=== PATIENT | male | born 1935 | race Caucasian/White ===

== ENCOUNTER 2016-07-10 15:22 | Inpatient (IN) | payer MEDICARE ==
[~2016-07-10] VITALS: Ht 171.4 cm; Wt 67.2 kg
[2016-07-10] VITALS (10 sets, daily range): BP systolic 102–134; BP diastolic 60–79; PULSE 89–100; RESP 18–44; O2SAT 87–97
[~2016-07-10 15:22] MED LIST: ALBU18HF INH; ALBU6.7H INH; ASPI-973 PO; BUDE1AMP2 IH; CALCIT PO; CHOL200047 PO; CHRO400T8 PO; DIF100A PO; INSU100I25 SQ; INSU3INS3 SUBQ; IPRA30SP8 NS; IPRA3AMP IH; LIPA1CAP3 PO; LIPA1CAP5 PO; MAGN250T29 PO; POTA99TA21 PO; PRAV40TA PO; RELION THIN SQ; SYMINH INHALATION; [UNRECOGNIZED DRUG - CODE] MC; [UNRECOGNIZED DRUG - OTHER]; [UNRECOGNIZED DRUG - OTHER] PO; [UNRECOGNIZED DRUG - SUPPLY]
--- NOTE | 2016-07-10 16:12 | DRSVH ---
PROCEDURE: X-RAY CHEST, TWO VIEWS ([id number]) INDICATIONS: COPD, RATTLING IN LUNGS, SOB TECHNIQUE: 2 views of the chest were acquired. COMPARISON: [facility], CT, CT CHEST ABD PELVIS W CON, 06/22/2016, 14:42. Rachael morton CR, CHEST 2VW, 03/26/2014, 12:07. FINDINGS: Surgical changes and devices: postoperative changes of the right shoulder are noted. Lungs and pleura: Bibasilar airspace disease is new since the prior CT. There may be trace effusions versus scarring. Subtle developing right infrahilar airspace disease appears to be present. No pne umothorax is evident. Mediastinum: Mediastinal contours are normal. Heart size is normal. There is aortic atherosclerosi s. Bones and chest wall: No suspicious bony abnormalities. Soft tissues appear unremarkable. IMPRESSION: 1. Developing bibasilar airspace disease is suspicious for pneumonia. There may be trace left effus ion. Dictated by: Hung Griffin M.D. on 07/10/2016 at 15:09 Approved by: Hung Griffin M.D. on 07/10/2016 at 15:11
--- NOTE | 2016-07-10 16:36 | ED.REPORT ---
HPI-Dyspnea / Wheezing Date of Service July 10, 2016 ED Provider: The patient is a 80 year old male with history of COPD, diabetes mellitus, and pancreatic cancer in remission s/p resection and chemotherapy, who was sent to the emergency department by his regular doctor for shortness of breath. The patient states his breathing has been this bad over the last 3 months. He uses Nebulizers and inhalers at home. He is not on home oxygen. He denies chest pain , fever, chills, productive cough, nausea, vomiting or diarrhea. He quit smoking tobacco about 10 years ago. Nursing Notes Stated Complaint: SHORTNESS OF BREATH Chief Complaint: Respiratory Distress Nursing Notes Reviewed: Yes Allergies: Coded Allergies: acetaminophen (Verified Allergy, Intermediate, RASH, 07/10/16) baclofen (Verified Allergy, Intermediate, 07/10/16) oxycodone (Verified Allergy, Intermediate, RASH, 07/10/16) Scheduled Aspirin (Aspirin) 81 Mg Tablet 81 MG PO DAILY Budesonide (Budesonide) 1 Mg/2 Ml Ampul.neb 1 MG IH BID Budesonide/Formoterol 160-4.5 mcg Inh (Symbicort 160-4.5 mcg Inh) 120 Puff Inhaler 1 PUFF INHALATION BID Calcium Citrate (Calcium Citrate) 250 Mg Tablet 250 MG PO DAILY Cholecalciferol (Vitamin D3) (Vitamin D3) 2,000 Unit Capsule 2,000 UNIT PO DAILY Chromium Picolinate (Chromium Picolinate) 400 Mcg Tablet 400 MCG PO DAILY Fluconazole (Diflucan) 100 Mg Tab 100 MG PO DIRECTED Insulin Detemir (Levemir Flextouch) 100 Unit/1 Ml Insuln.pen 100 UNIT SQ DIRECTED Insuln Asp Prt/Insulin Aspart (NovoLOG 70/30 U100 Insulin Flexpen) 100 Unit/Ml Unit 8-12 UNIT SUBQ sliding scale Ipratropium [place] (Ipratropium [place] 0.03% Nasal) 30 Ml [place] 2 SPRAY NS TID Lipase/Protease/Amylase (Creon DR) 12,000 Unit Capsule 2 CAPSULE PO TID Lipase/Protease/Amylase (Creon DR) 24,000 Unit Capsule 2 CAPSULE PO TID Magnesium Oxide (Magnesium) 250 Mg Tablet 250 MG PO DAILY Mv, Min #36/Iron,Carbonyl/FA (Geritol Complete Tablet) 1 Each Tablet 1 EACH PO DAILY Potassium Gluconate (Potassium) 99 Mg Tablet 99 MG PO DAILY Pravastatin (Pravastatin) 40 Mg Tablet 40 MG PO DAILY Scheduled PRN Albuterol Sulfate (Proventil HFA Inhaler) 6.7 Gm Hfa.aer.ad 1 PUFF INH Q4 PRN PRN For Shortness of Breath Albuterol Sulfate (Ventolin HFA Inhaler) 200 Puff/18 Gm Inhaler 1 PUFF INH Q4 PRN PRN For Wheezing Ipratropium/Albuterol Sulfate (Iprat-Albut 0.5-3(2.5) mg/3 mL Inhalant Soln) 3 Ml Ampul.neb 3 ML IH QID PRN PRN For Wheezing General Time Seen by MD: 16:36 Chief Complaint Shortness of breath Hx Obtained From: Patient Arrived By: Walk-in Sudden in Onset?: No Onset Occurred: 1 week ago Symptom Duration: Since onset Location: : None Severity: Current: No pain currently Severity: Maximum: No pain Recent Healthcare: No recent hospitalization, Recent doctor visit Similar Sx Previous: Yes Past Medical History Past Medical History Notes: Oncologist: Dr. Burgos Past Medical History COPD Diabetes mellitus Pancreatic cancer Past Surgical History Tumor resections Family History Noncontributory Smoking History Unknown if Ever Smoker Social History Lives in [facility] [place] Independent Review of Systems Constitutional: Denies: Chills, Fever Respiratory: Reports: Shortness of breath, Denies: Prod cough, bloody, Prod cough, brown, Prod cough, clear, Prod cough , green, Prod cough, white, Prod cough, yellow Cardiovascular: Denies: Chest pain Complete sys rev & neg: except as marked. GI: Denies: Diarrhea, Nausea, Vomiting Physical Exam Initial Vital Signs Vital Signs (First) Date Time Temp Pulse Resp B/P Pulse Ox O2 Delivery O2 Flow Rate FiO2 07/10/16 15:42 36.3 89 22 102/60 95 Room Air 07/10/16 17:46 2 Initial VS: Reviewed Head / Eyes: Atraumatic, Normocephalic, PERRL ENT: Mucous membranes moist, Conjunctiva normal, No scleral icterus Abdomen / GI: Soft, Non-tender, No guarding, No rebound, No distention Lymphatic: No lymphadenopathy Extremities: Vascular intact, Neuro intact, No swelling, No tenderness Skin: Warm, Dry, No cyanosis Neurologic: Alert, Oriented, Nonfocal Psychiatric: Mood/affect normal, Behavior normal, Normal thought content General/Constitutional: Awake, Alert, Cooperative Neck: Atraumatic, Supple, No meningismus, Full range of motion, No swelling, Non-tender, No masses Respiratory / Chest: Breath sounds = bilat, No respiratory distress, No rales, No rhonchi, No wheezing, No retractions Diminished Breath Sounds: Positive: Decreased bilateral Cardiovascular: Heart rate NL, Regular rhythm, Heart sounds NL, No murmurs, No rubs, Peripheral circulation NL Interpretation & Diagnostics Lab Results Interpretation Result Diagram: 07/10/16 1720 07/10/16 1720 Test 07/10/16 17:20 White Blood Count 6.0th/mm3 (3.8-10.1) Red Blood Count 4.47mil/mm3 (4.40-5.80) Hemoglobin 13.8g/dL (13.8-17.2) Hematocrit 41.1% (41.0-50.0) Mean Corpuscular Volume 91.9fL (81-100) Mean Corpuscular Hemoglobin 30.9pg (27.0-35.0) Mean Corpuscular Hemoglobin Concent 33.6% (32.0-37.0) Red Cell Distribution Width 14.2% (12.3-15.4) Platelet Count 156bil/L (150-400) Neutrophils (%) (Auto) 71.9% (40-74) Lymphocytes (%) (Auto) 15.8% (14-46) Monocytes (%) (Auto) 11.3% (4-12) Eosinophils (%) (Auto) 0.5% (0-5) Basophils (%) (Auto) 0.3% (0-3) Sodium Level 141mEq/L (134-144) Potassium Level 4.3mEq/L (3.5-5.2) Chloride Level 104mEq/L (97-108) Carbon Dioxide Level 23mmol/L (18-29) Blood Urea Nitrogen 15mg/dL (8-27) Creatinine 0.75mg/dL (0.76-1.27) Estimat Glomerular Filtration Rate 107mL/min (>59) Glucose Level 239mg/dL (60-99) Calcium Level 8.7mg/dL (8.5-10.1) Total Bilirubin 0.7mg/dL (0.0-1.2) Aspartate Amino Transf (AST/SGOT) 41U/L (0-50) Alanine Aminotransferase (ALT/SGPT) 44U/L (0-44) Alkaline Phosphatase 74U/L (25-160) Troponin T < 0.010ug/L (0.0-0.011) Pro-B-Type Natriuretic Peptide 4472pg/mL (0-486) Total Protein 7.0g/dL (6.4-8.4) Albumin 3.6g/dL (3.4-5.0) Hold Lang Top Tube Received (Received) ECG Interpretation ECG Interpretation: Sinus rhythm with a rate of 85 Probable left atrial enlargment LBBB Time: 17:27 Interpreted by: ED physician X-Ray Chest Interpretation Chest Xray Interpretation: IMPRESSION: 1. Developing bibasilar airspace disease is suspicious for pneumonia. There may be trace left effusion. Dictated by: Hung Griffin M.D. on 07/10/2016 at 15:09 Interpretation / Wet Read by: Interpret - Radiologist Re-Eval/Medical Decision Source of Hx: Old records Re-Evaluation/Progress #1: Time of Eval: 17:30 Re-Evaluation/Progress Note: The patient was 87 % during his road test. Re-Evaluation/Progress #2: Time of Eval: 18:34 Re-Evaluation/Progress Note: Rechecked the patient. Discussed plan for admission. All questions were addressed. Consultation : Referral / Consult Name: Matias Santa MD Consulted With: Hospitalist Call Returned at: 19:30 Breaker Hand: Will see patient, Agrees with eval, Agrees with plan, Accepts admit Counseled Regarding: Diagnosis, Lab results, Need for admission Discharge & Departure Impression: Primary Impression: COPD exacerbation Disposition: ADMITTED TO HOSPITAL Discharge Condition All VS Reviewed: Yes Condition: Stable Referrals: Eduard Marshall DO (PCP) Demetrio Attestation Portions of this note were transcribed by Korin Loza. I, Dr. Diego personally performed the history, physical exam and medical decision-making; I reviewed and confirmed the accuracy of the information in the transcribed note. Signed by: Demetrio Restrepo, 07/10/2016 at 1945. copies to: Eduard Marshall Kirk H MD July 10, 2016 16:36 Korin Loza July 10, 2016 16:39
[2016-07-10 17:32] LABS: BASOPHILS % (AUTO) 0.3 % (0-3); EOSINOPHILS % (AUTO) 0.5 % (0-5); MONOCYTES % (AUTO) 11.3 % (4-12); Mean Corpuscular Hemoglobin 30.9 pg (27.0-35.0); Mean Corpuscular Volume 91.9 fL (81-100); NEUTROPHILS % (AUTO) 71.9 % (40-74); Platelet Count 156 bil/L (150-400)
[2016-07-10 18:08] LABS: TROPONIN T < 0.010 ug/L (0.0-0.011)
[2016-07-10] MEDS ORDERED: Albuterol-Ipratropium 3 mL Inhalation Solution NEB ONE (18:35)
[2016-07-10] MEDS ORDERED: Albuterol 2.5 mg/3 mL Inhalation Solution NEB ONE (18:35)
[2016-07-10] MEDS ORDERED: MethylprednisoLONE Sodium Succinate 62.5 mg/mL 2 mL Inj IVPUSH ONE (18:35)
[2016-07-10] MEDS ORDERED: Ondansetron 2 mg/mL 2 mL Inj IVPUSH PRN ×2 (19:35→19:50)
[2016-07-10] MEDS ORDERED: Alum-Mag Hydrox-Simeth 30 mL Suspension PO PRN ×2 (19:35→19:50)
[2016-07-10] MEDS ORDERED: Polyethylene Glycol (PEG) 17 Gm Powder PO PRN (19:50)
[2016-07-10] MEDS ORDERED: Glucose 40% Oral Gel 15 Gm Tube PO PRN (19:55)
--- NOTE | 2016-07-10 20:01 | PCM.HPMED ---
Subjective Date of Service July 10, 2016 Primary Provider: Admitting Physician: Primary Care Physician: Eduard Marshall DO Attending Physician: Admit Status: From the Emergency Department, Full Admit, Remote Telemetry Chief Complaint: Shortness of breathe History of Present Illness: Eduardo Martinez is a 80 year old male with COPD, diabetes mellitus, and pancreatic cancer in remission s/p resection and chemotherapy, who was sent to [facility] emergency department by his regular doctor for shortness of breath. The patient states his breathing has been this bad over the last 3 months but worsened in the last 2-3 days. Associated symptoms includes productive whitish sputum. Dyspnea exacerbated with exertion. Denies any sick contacts. He uses Nebulizers and inhalers at home with no significant improvement. Yesterday he was mowing his lawn and it really made his breathing worst. He does have allergies to pollen. He denies chest pain, fever, chills, nausea, vomiting or diarrhea. Patient had hypoglycemic episode a few days back likely due to PO intake due to his breathing issues mentioned above. He was instructed to decreased his Novolog dose by 2 units. He is not on home oxygen. He quit smoking tobacco about 10 years ago. He denies any heart failure or other heart problems. Case discussed with Dr Diego, received neb treatments and Solu-Medrol IV. Oxygen also given but despite rounds of treatments still remained symptomatic and will be admitted Review of Systems: Pertinent positives as noted in HPI. All other systems were reviewed and are negative Allergies Coded Allergies: acetaminophen (Verified Allergy, Intermediate, RASH, 07/10/16) baclofen (Verified Allergy, Intermediate, 07/10/16) oxycodone (Verified Allergy, Intermediate, RASH, 07/10/16) Home Medications From [facility], Not yet confirmed Eduardo Martinez [phone] 1935 06/08/2016 04:10 PM 1/6 Aspirin 1 tab(s) PO once a day BUDESONIDE 0.5 MG/2 ML SUSP INHALE THE CONTENTS OF 1 VIAL VIA NEBULIZER TWICE A DAY calcium citrate chromium picolinate 400 mcg tablet Creon 12,000-38,000-60,000 unit capsule,delayed release take 2 capsule by oral route 3 times every day with meals and 1 capsule with each snack Creon 24,000-76,000-120,000 unit capsule,delayed release take 2 capsule by oral route 3 times every day with meals and 1 capsule with each snack Diflucan 100 mg tablet take 2 tablet by oral route for the first day. Then take one tablet by oral route for 13 days. IPRATROPIUM 0.03% SPRAY instill 2 sprays into each nostril twice a day to three times a day ipratropium-albuterol 0.5 mg-3 mg(2.5 mg base)/3 mL nebulization soln inhale 3 milliliter by nebulization route 4 times every day Levemir FlexTouch 100 unit/mL (3 mL) subcutaneous insulin pen inject 10 units by subcutaneous route in the morning and at night. magnesium 250 mg tablet Novolog Flexpen 100 unit/mL subcutaneous Inject 8-12 units with meals depending on sm/med/lg meal, along with sliding scale potassium 99 mg tablet pravastatin 40 mg tablet 1/2 po QPM Proventil HFA 90 mcg/actuation aerosol inhaler 2 puffs inhaled qid prn congestion Symbicort 160 mcg-4.5 mcg/actuation HFA aerosol inhaler inhale 2 puff by inhalation route 2 times every day in the morning and evening tamsulosin 0.4 mg capsule TAKE 1 CAPSULE BY MOUTH TWICE A DAY 30 MINS FOLLOWING THE SAME MEAL EACH DAY Ventolin HFA 90 mcg/actuation aerosol inhaler inhale 2 puff by inhalation route every 4 - 6 hours as needed Vitamin D3 2,000 unit tablet PMH T3 N0 pancreatic head adenocarcinoma diagnosed in 2006 Insulin requiring Diabetes SHOULDER TENDINITIS Nodular Prostate With Urinary Obstruction COPD OSTEOARTHRITIS LUMBAGO AAA Hyperlipidemia Chronic Hepatitis C . Surgical History Exploratory laparotomy with lysis of adhesions, pylorus-preserving Whipple procedure and portal node resection. At [facility] in 2006 Family History Father was a Alcoholic and developed cirrhosis Mother 84, had Cold agglutin AB syndrome Social History Occupation: works security Hx Alcohol Use: No Hx Substance Use: No Hx Tobacco Use: Yes (quit more than 10 years ago) Smoking Status: Former Smoker Living Arrangement: with Family Exam Vital Signs Vital Sign - Last Date Time Temp Pulse Resp B/P Pulse Ox O2 Delivery O2 Flow Rate FiO2 07/10/16 19:47 93 24 125/75 96 Nasal Cannula 2 07/10/16 15:42 36.3 Exam General: Alert, Oriented X3, Cooperative, No acute Distress talking in full sentences Eyes: PERRLA, Scleral Anicteric Mouth: Mouth Normal, Mucous Membranes Moist/[place] Neck: Supple, no Thyromegaly, trachea central. Chest & Lungs: decreased breathe sounds throughout with mild expiratory wheezing Cardiovascular: Normal S1, Normal S2, No Murmurs/Rubs/Gallops, Regular Rate/ Rhythm, (No JVD, no peripheral edema) Pulses: Radial (present and equal), Dorsalis Pedi (present and equal) Abdomen: Soft, Non-tender, Non-distended, Normoactive bowel tones. Musculoskeletal: Unremarkable. Normal range of motion, no swollen or erythematous joints Extremities: No edema, no cyanosis, no clubbing. Skin: No rashes. Warm and dry, no erythematous areas Neurological: Grossly neurologically intact, Normal Speech, Sensation Intact Lymphatic: Lymph nodes Cervical and Axillary not palpable. Lab and Diagnostics Labs Laboratory Tests Test 07/10/16 17:20 White Blood Count 6.0th/mm3 (3.8-10.1) Red Blood Count 4.47mil/mm3 (4.40-5.80) Hemoglobin 13.8g/dL (13.8-17.2) Hematocrit 41.1% (41.0-50.0) Mean Corpuscular Volume 91.9fL (81-100) Mean Corpuscular Hemoglobin 30.9pg (27.0-35.0) Mean Corpuscular Hemoglobin Concent 33.6% (32.0-37.0) Red Cell Distribution Width 14.2% (12.3-15.4) Platelet Count 156bil/L (150-400) Neutrophils (%) (Auto) 71.9% (40-74) Lymphocytes (%) (Auto) 15.8% (14-46) Monocytes (%) (Auto) 11.3% (4-12) Eosinophils (%) (Auto) 0.5% (0-5) Basophils (%) (Auto) 0.3% (0-3) Sodium Level 141mEq/L (134-144) Potassium Level 4.3mEq/L (3.5-5.2) Chloride Level 104mEq/L (97-108) Carbon Dioxide Level 23mmol/L (18-29) Blood Urea Nitrogen 15mg/dL (8-27) Creatinine 0.75mg/dL (0.76-1.27) Estimat Glomerular Filtration Rate 107mL/min (>59) Glucose Level 239mg/dL (60-99) Calcium Level 8.7mg/dL (8.5-10.1) Total Bilirubin 0.7mg/dL (0.0-1.2) Aspartate Amino Transf (AST/SGOT) 41U/L (0-50) Alanine Aminotransferase (ALT/SGPT) 44U/L (0-44) Alkaline Phosphatase 74U/L (25-160) Troponin T < 0.010ug/L (0.0-0.011) Pro-B-Type Natriuretic Peptide 4472pg/mL (0-486) Total Protein 7.0g/dL (6.4-8.4) Albumin 3.6g/dL (3.4-5.0) Hold Lang Top Tube Received (Received) Result Diagram: 07/10/16 1720 07/10/16 1720 X-Rays, CTs and MRIs X-RAY CHEST, TWO VIEWS 07/10 IMPRESSION: 1. Developing bibasilar airspace disease is suspicious for pneumonia. There may be trace left effusion. Dictated by: Hung Griffin M.D. on 07/10/2016 at 15:09 Approved by: Hung Griffin M.D. on 07/10/2016 at 15:11 Assessment & Plan Eduardo Martinez is a 80 year old male with COPD, diabetes mellitus, and pancreatic cancer in remission s/p resection and chemotherapy, who was sent to [facility] emergency department by his regular doctor for shortness of breath. 1. Acute Hypoxic Respiratory Failure secondary to COPD exacerbation. Present on admission Likely triggered by a viral respiratory infection and allergic rhinitis with pollens. Former smoke 10 years ago - continue supplemental oxygen - DuoNeb treatments scheduled - Steroids: Solu-Medrol IV received tapered to Prednisone 40 mg daily - checking procalcitonin, consider antibiotics if elevated - Respiratory therapists to test if patient qualify for home oxygen prior to discharge 2. Diabetes Type 1. Some hypoglycemic episodes recently due to decreased appetite. Expecting some pump from the steroids - high correction Lispro algorithm - converting Levemir to Lantus 10 units bid sq - checking A1c 3. Pancreatis cancer in remission with Chronic pancreatitis - continue Creon with meals - continue outpatient surveillance with the Oncology clinic 4. Aortic Aneurysm There is fusiform dilatation of the infrarenal abdominal aorta which measures 3.5 x 3.9 cm in diameter and is unchanged in the study dated 12/11/13. - needs yearly imaging to monitor progression - no indications for Aortic surgery at this time 5. Dyslipidemia - continue Pravastatin 20 mg daily - Acetaminophen as needed for mild pain/fever/headache - Bowel regimen as needed - Antiemetic as needed Patient admitted under inpatient status with expected length of stay > 2 midnights for severity of present symptoms, complexities of treatment plan and risk for adverse event . Resuscitation Status: CPR: Attempt Resuscitation Matias Santa MD July 10, 2016 20:01 DAY calcium citrate chromium picolinate 400 mcg tablet Creon 12,000-38,000-60,000 unit capsule,delayed release take 2 capsule by oral route 3 times every day with meals and 1 capsule with each snack Creon 24,000-76,000-120,000 unit capsule,delayed release take 2 capsule by oral route 3 times every day with meals and 1 capsule with each snack Diflucan 100 mg tablet take 2 tablet by oral route for the first day. Then take one tablet by oral route for 13 days. IPRATROPIUM 0.03% SPRAY instill 2 sprays into each nostril twice a day to three times a day ipratropium-albuterol 0.5 mg-3 mg(2.5 mg base)/3 mL nebulization soln inhale 3 milliliter by nebulization route 4 times every day Levemir FlexTouch 100 unit/mL (3 mL) subcutaneous insulin pen inject 10 units by subcutaneous route in the morning and at night. magnesium 250 mg tablet Novolog Flexpen 100 unit/mL subcutaneous Inject 8-12 units with meals depending on sm/med/lg meal, along with sliding scale Proventil HFA 90 mcg/actuation aerosol inhaler 2 puffs inhaled qid prn congestion Symbicort 160 mcg-4.5 mcg/actuation HFA aerosol inhaler inhale 2 puff by inhalation route 2 times every day in the morning and evening tamsulosin 0.4 mg capsule TAKE 1 CAPSULE BY MOUTH TWICE A DAY 30 MINS FOLLOWING THE SAME MEAL EACH DAY Ventolin HFA 90 mcg/actuation aerosol inhaler inhale 2 puff by inhalation route every 4 - 6 hours as needed Vitamin D3 2,000 unit tablet Resuscitation Status: CPR: Attempt Resuscitation Matias Santa MD July 10, 2016 20:01
[2016-07-10] MEDS ORDERED: INSU100C8 SUBQ (20:09)
[2016-07-10] MEDS ORDERED: TAMS0.4C29 PO (20:16)
[2016-07-10] MEDS ORDERED: FISH1CAP15 PO (20:17)
[2016-07-10] MEDS: Albuterol-Ipratropium 3 mL Inhalation Solution NEB SCH ×2 (20:59→23:52)
[2016-07-10] MEDS ORDERED: Insulin LISPRO 300 Unit/3 mL Inj SUBQ SCH (22:00)
--- NOTE | 2016-07-10 23:27 | NUR ---
admit note: pt. admitted for sob, worse past two weeks, tele sinus rhythm IVCD 94, pt. on 4lO2 has sob w/ exertion.
[2016-07-10] MEDS: Insulin GLARgine 100 Unit/mL Syringe SUBQ SCH (23:32)
[2016-07-10] MEDS: Heparin 5,000 Unit/mL Inj SUBQ SCH (23:33)
[2016-07-11] VITALS (12 sets, daily range): BP systolic 119–145; BP diastolic 79–94; PULSE 92–104; RESP 20–28; O2SAT 93–98
[2016-07-11] MEDS: Albuterol-Ipratropium 3 mL Inhalation Solution NEB SCH ×5 (05:00→20:58)
[2016-07-11] MEDS ORDERED: MV MIN PO SCH (07:35)
[2016-07-11] MEDS ORDERED: [UNRECOGNIZED DRUG - OTHER] PO SCH (07:35)
[2016-07-11] MEDS ORDERED: IRON CARBONYL PO SCH (07:35)
[2016-07-11] MEDS ORDERED: Glucose 40% Oral Gel 15 Gm Tube PO PRN (07:40)
[2016-07-11] MEDS: POTASSIUM GLUCONATE 198 MG PO SCH (08:00)
[2016-07-11] MEDS ORDERED: predniSONE 20 mg Tablet PO SCH (08:30)
[2016-07-11] MEDS: Heparin 5,000 Unit/mL Inj SUBQ SCH ×2 (08:41→17:31)
[2016-07-11] MEDS: Insulin LISPRO 300 Unit/3 mL Inj SUBQ SCH ×4 (08:42→21:42)
[2016-07-11] MEDS: Pancrelipase 5,000 Unit Capsule PO SCH ×3 (09:21→21:04)
[2016-07-11] MEDS: Fluticasone-Salmeterol 500-50 Inhaler INHALATION SCH ×2 (09:24→21:04)
[2016-07-11] MEDS: Insulin GLARgine 100 Unit/mL Syringe SUBQ SCH ×2 (09:24→21:41)
--- NOTE | 2016-07-11 11:01 | NUR ---
Med Rec: Med rec reviewed from provider list, pt SOB and states "you have the list" and did not want to discuss home medication list with RN.
--- NOTE | 2016-07-11 11:45 | PCM.PNMED ---
Subjective Date of Service July 11, 2016 Subjective Patient states that dyspnea has been getting worse the last 2-3 months. no fevers chills, productive clear sputum. He used smoker 56 yeras until he had pancreatic cancer. Nebulized treatments are not helping Exam Vital Signs Vital Sign - Last Date Time Temp Pulse Resp B/P Pulse Ox O2 Delivery O2 Flow Rate FiO2 07/11/16 05:08 36.3 96 20 128/85 95 Nasal Cannula 2.00 Intake and Output 07/10/16 07/10/16 07/11/16 Cumulative From/Thru 15:00 23:00 07:00 07/10/16 15:42 - 07/11/16 06:57 Intake Total 120 ml 600 ml 720 ml Output Total 750 ml 750 ml Balance 120 ml -150 ml -30 ml Intake Oral 120 ml 600 ml 720 ml Output Urine Total 750 ml 750 ml Exam Gen.: Appears to be in moderate distress HEENT: Normocephalic, atraumatic Lungs: Positive for rales and crackles but no wheezing , increased work of breathing Heart: Distant heart sounds are heard by breathing sounds Abd: NT/ND, soft neck: positive left side jvd, no hepatojugular reflux Extremities: 1+ pedal edema Abdomen: Nondistended Skin: Warm and dry Psych: Negative for anxiety: Neuro: No focal deficits IVs and Medications IV Fluids None Medications Reviewed: Medications were reviewed in detail Lab and Diagnostics Result Diagram: 07/10/16 1720 07/10/16 1720 X-Rays, CTs and MRIs X-RAY CHEST, TWO VIEWS 07/10 IMPRESSION: 1. Developing bibasilar airspace disease is suspicious for pneumonia. There may be trace left effusion. Dictated by: Hung Griffin M.D. on 07/10/2016 at 15:09 Approved by: Hung Griffin M.D. on 07/10/2016 at 15:11 Assessment & Plan Eduardo Martinez is a 80 year old male with COPD, diabetes mellitus, and pancreatic cancer in remission s/p resection and chemotherapy, who was sent to [facility] emergency department by his regular doctor for shortness of breath. 1. Acute Hypoxic Respiratory Failure secondary to COPD exacerbation. Plan review the place to be CHF exacerbation Present on admission Likely triggered by a viral respiratory infection and allergic rhinitis with pollens. Former smoke 10 years ago - continue supplemental oxygen - DuoNeb treatments scheduled 2. Acute on chronic congestive heart failure of unknown type: -- Lasix 40 mg 3 times a day IV -- Morphine as needed for dyspnea -- Nitroglycerin when necessary -- Oxygen when necessary -- Echocardiogram already performed: We will follow the result -- Daily weights, accurate I and O's 3. Diabetes Type 2. Some hypoglycemic episodes recently due to decreased appetite. Expecting some pump from the steroids - high correction Lispro algorithm - converting Levemir to Lantus 10 units bid sq - checking A1c 4. Pancreatis cancer in remission with Chronic pancreatitis - continue Creon with meals - continue outpatient surveillance with the Oncology clinic 5. Aortic Aneurysm There is fusiform dilatation of the infrarenal abdominal aorta which measures 3.5 x 3.9 cm in diameter and is unchanged in the study dated 12/11/13. - needs yearly imaging to monitor progression - no indications for Aortic surgery at this time 5. Dyslipidemia - continue Pravastatin 20 mg daily - Acetaminophen as needed for mild pain/fever/headache - Bowel regimen as needed - Antiemetic as needed Patient admitted under inpatient status with expected length of stay > 2 midnights for severity of present symptoms, complexities of treatment plan and risk for adverse event . Pain Evaluation: Adequate Pain Control Resuscitation Status: CPR: Attempt Resuscitation Time spent 30 minutes Jaye Mcleod DO July 11, 2016 07:30
--- NOTE | 2016-07-11 11:46 | NUR ---
Social Work: Initial Assessment Data: Pt is a 80 y/o male admitted for COPD exacerbation. Pt's PCP is Dr Marshall. Pt's insurance is Medicare with [employer] supp. EMR reviewed. Readmit score is 3. Pt discussed in rounds. MD states pt likely has CHF. GLAZING MACHINE OPERATOR met with pt at bedside, role explained. Pt states that he lives near [place] with his spouse in a single story home where he uses no DME. Pt drives, has no hx of HH or SNF, no LTC or VA benefits. GLAZING MACHINE OPERATOR explained and offered HH to pt, pt accepted. HH choice list given. Pt states no preference. Per rotating calendar, GLAZING MACHINE OPERATOR called [facility], spoke with [facility]. Faxed over Facesheet and H&P to them. F2F in GLAZING MACHINE OPERATOR folder. Daily with [facility] states she believes they go to [place] but will look into it to confirm. Assessment: Pt who is independent at baseline. Plan: Pt will d/c home via POV when medically stable with Landry OHARA RN. GLAZING MACHINE OPERATOR will continue to follow. TON Ramírez Addendum: 07/11/16 at 1208 by AGUILA MARS Amended: Links added.
[2016-07-11] MEDS: Furosemide 10 mg/mL 4 mL Inj IVPUSH SCH ×2 (12:03→21:04)
--- NOTE | 2016-07-11 12:42 | DRSVH ---
[facility] [address] [place] [address] Echocardiogram Report Name: MELISSA EPSTEIN te: 07/11/2016 Height: 68 in Hospital Exam Location: [facility] Weight: 166 lb Gender: Male BSA: 1.9 m2 : 1935 Age: 80 yrs BP: 128/85 mmHg Reason For Study: COPD Ordering Physician: Performed By: Daily Clements Referring Physician: Jeanne Marshall Interpretation Summary Left ventricular systolic function is severely reduced with the ejection fraction estimated to be 25-30% with severe global hypokinesis but no focal wall motion abnormalities. The left ventricle is moderately dilated. Diastolic function could not be accurately assessed due to unobtainable data but the E/E' ratio is severely increased, suggesting possible increased filling pressures. The right ventricle is moderately dilated and right ventricular systolic function is moderately reduced. There is moderate-severe pulmonary hypertension with the right ventricular systolic pressure estimated at 64 mmHg assuming a right atrial pressure of 15 mm Hg. The left atrium is severely dilated and the right atrium is mildly dilated. There is moderate mitral regurgitation and mild to moderate tricuspid regurgitation but no other significant valvular heart disease. The ascending aorta is mildly enlarged and the abdominal aorta is mildly dilated. Procedure: A two-dimensional transthoracic echocardiogram with color flow and Doppler was performed. The study quality was technically good. The patient was in normal sinus rhythm during the exam. Left Ventricle: The left ventricle is moderately dilated. There is normal left ventricular wall thickness. Left ventricular systolic function is severely reduced. The ejection fraction is estimated to be 25-30%. There is severe global hypokinesis of the left ventricle. There are no focal wall motion abnormalities. Diastolic function could not be accurately assessed due to unobtainable data. The E/E' ratio is severely increased, suggesting possible increased filling pressures. Right Ventricle: The right ventricle is moderately dilated. Right ventricular systolic function is moderately reduced. Atria: The left atrium is severely dilated. The right atrium is mildly dilated. The interatrial septum is intact with no evidence for an atrial septal defect. Mitral Valve: There is mild mitral annular calcification. There is slight calcification extending into the subvalvular apparatus. The mitral valve leaflets appear mildly thickened, but open well. There is moderate mitral regurgitation. Aortic Valve: The aortic valve is trileaflet. The aortic valve is slightly calcified. The aortic valve opens well. No aortic regurgitation is present. Tricuspid Valve: The tricuspid valve leaflets are thin and pliable. There is mild to moderate tricuspid regurgitation. There is moderate-severe pulmonary hypertension. The right ventricular systolic pressure is estimated at 64 mmHg assuming a right atrial pressure of 15 mm Hg. Pulmonic Valve: The pulmonic valve is not well visualized. There is trace pulmonic regurgitation. There is no other significant valvular heart disease. Great Vessels: The aortic root is normal size. The ascending aorta is mildly enlarged. Mildly dilated abdominal aorta. The IVC is dilated (diameter is greater than 2.1 cm) and it collapses less than 50% with a sniff. This suggests a high right atrial pressure of 15 mm Hg. Pericardium/ Pleura There is no pericardial effusion. There is no pleural effusion. MMode/2D Measurements & Calculations LVIDd: 6.4 cm LA dimension: 4.8 cm RA long axis: 5.2 cm Ao root diam LVIDs: 5.8 cm FS: 8.5 % LA A2 area: 28.0 cm RA area: 20.5 cm Aortic Jxn: 2.8 cm IVSd: 0.98 cm LA A4 area: 22.4 cm RA vol: 68.9 ml asc Aorta Diam LVPWd: 0.82 cmLA length (vol) RA : 36.5 ml/m RVDd major: 6.6 cm Ao Arch Diam (Prox LA vol: 95.6 ml Trans): 3.6 cm LA vol index IVC diam: 2.2 cm EDV(MOD-sp2) LV goncalves. diameter/BSA LV sys. diameter/BSA RVD1 (basal) (cm/m^2): 3.4 (cm/m^2): 3.1 : 3.7 cm ESV(MOD-sp2) EF(MOD-sp2) RVD2 (mid) : 2.9 cm Doppler Measurements & Calculations Ao V2 max MV E max mele Med Peak E' Mele TR max mele : 98.8 cm/sec : 74.7 cm/sec : 351.5 cm/sec Ao max PG MV P1/2t: 54.6 msec E/E' med: 32.3 TR max PG : 3.9 mmHg Lat Peak E' Mele : 49.4 mmHg Ao mean PG PA V2 max : 2.1 mmHg E/E' lat: 10.8 : 61.7 cm/sec E/e' average: 21.5 PA mean PG Pulm A Revs Dur : 0.78 mmHg PA Accel Time : 0.10 sec MV V2 mean MV P1/2t max mele Ao V2 mean MR flow rate : 37.1 cm/sec : 68.6 cm/sec MV mean PG Ao V2 VTI: 17.8 cm : 75.4 cm3/sec : 0.80 mmHg MVA(P1/2t): 4.0 cm2 MR PISA radius MV V2 VTI : 11.0 cm PA V2 mean : 40.9 cm/sec Reading Physician:12:41 PM
--- NOTE | 2016-07-11 17:46 | NUR ---
Breathing Pt appearing quite SOB sitting at bedside with 2L O2, crackles heard in bases of lungs. MD ordered 40mg IV lasix TID. After one administration, pt appearing much more comfortable, states "I am breathing easier", and lungs sound slightly improved. Will continue to administer medications as ordered and monitor vital signs, and pt symptoms.
[2016-07-12] VITALS (14 sets, daily range): BP systolic 102–119; BP diastolic 65–70; PULSE 80–96; RESP 16–20; O2SAT 91–100
[2016-07-12] MEDS: Heparin 5,000 Unit/mL Inj SUBQ SCH ×3 (00:17→17:44)
[2016-07-12] MEDS: Albuterol-Ipratropium 3 mL Inhalation Solution NEB SCH ×5 (00:35→15:33)
--- NOTE | 2016-07-12 02:37 | NUR ---
Uneventful night: Pt rested intermittently through the night with no complaints of pain or discomfort. Denies n/v. Reports improvement with breathing but continues to be SOB when up out of bed and at rest. SBA and nonslip socks on for safety.Call light within reach, using appropriately. Frequent rounding in place. Pleasant and cooperative with care.
[2016-07-12] MEDS: POTASSIUM GLUCONATE 198 MG PO SCH (08:00)
[2016-07-12] MEDS: Fluticasone-Salmeterol 500-50 Inhaler INHALATION SCH ×2 (08:06→20:31)
[2016-07-12] MEDS: Pancrelipase 5,000 Unit Capsule PO SCH ×3 (08:07→17:43)
[2016-07-12] MEDS: Insulin GLARgine 100 Unit/mL Syringe SUBQ SCH (08:07)
[2016-07-12] MEDS: Insulin LISPRO 300 Unit/3 mL Inj SUBQ SCH ×4 (08:07→20:36)
[2016-07-12] MEDS: Furosemide 10 mg/mL 4 mL Inj IVPUSH SCH ×2 (08:08→15:07)
[2016-07-12 09:21] LABS: APPEARANCE,URINE HAZY (CLEAR,HAZY); COLOR,URINE STRAW (YELLOW); OCCULT BLOOD,URINE NEGATIVE (NEGATIVE); UROBILINOGEN,URINE NORMAL (NORMAL)
--- NOTE | 2016-07-12 14:30 | NUR ---
VTACH Tele reported 12 beats of VTach with HR in 140's at 1430. Pt sleeping peacefully upon assessment, reported no palpitations or stress. MD & cardiology informed. Plan for Heart Cath tomorrow in AM.
--- NOTE | 2016-07-12 16:07 | NUR ---
Social Work: Continued d/c planning Data: Pt is on day 2 of hospitalization. WORK ORDER CLERK received a voice mail from [facility] that they cannot go out to [place]. WORK ORDER CLERK met with pt regarding physical address. Pt states his address [id number] [place] [address]. WORK ORDER CLERK informed pt that HH may not service his area but WORK ORDER CLERK will check. Plan: Pt will d/c home via POV when medically stable. WORK ORDER CLERK to follow up with Gini OHARA regarding if they go to [place]. WORK ORDER CLERK will continue to follow. TON Ramírez
[2016-07-12] MEDS ORDERED: Potassium Chloride 20 mEq SR Tablet PO ONE (16:45)
[2016-07-12] MEDS ORDERED: Albuterol-Ipratropium 3 mL Inhalation Solution NEB PRN (16:55)
[2016-07-12] MEDS ORDERED: Insulin GLARgine 100 Unit/mL Syringe SUBQ ONE (18:10)
--- NOTE | 2016-07-12 18:30 | NUR ---
Ambulation/SpO2 Pt ambulated 2x during shift making 2 laps around unit with SBA. Pt strong and steady on feet, on RA. Pt reported minimal SOB with activity and SpO2 maintained around 90-91% while conversing. Pt requested O2 once back in room, placed on 1L for comfort. informed how pt tolerated activity.
[2016-07-12] MEDS ORDERED: Furosemide 10 mg/mL 4 mL Inj IVPUSH SCH (20:30)
--- NOTE | 2016-07-12 21:52 | PCM.PNMED ---
Subjective Date of Service July 12, 2016 Subjective Patient looks much better today. He states that he has been walking around comfortably, his nurse told him at point his heart rate is too high, thus he should rest. 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, never thought that he would need one Exam Vital Signs Vital Sign - Last Date Time Temp Pulse Resp B/P Pulse Ox O2 Delivery O2 Flow Rate FiO2 07/12/16 15:30 85 18 94 Nasal Cannula 2.00 07/12/16 15:04 36.4 119/68 Intake and Output 07/11/16 07/11/16 07/12/16 Cumulative From/Thru 15:00 23:00 07:00 07/10/16 15:42 - 07/12/16 05:40 Intake Total 1500 ml 300 ml 2520 ml Output Total 300 ml 1625 ml 2675 ml Balance 1200 ml -1325 ml -155 ml Intake Oral 1500 ml 300 ml 2520 ml Output Urine Total 300 ml 1625 ml 2675 ml # Voids 6 6 # Bowel Movements 1 1 Exam Gen.: Appears to be in moderate distress HEENT: Normocephalic, atraumatic Lungs: Much improved breathing sounds Heart: Distant heart sounds are masked by breathing sounds Abd: NT/ND, soft neck: Trachea central Extremities: 1+ pedal edema Abdomen: Nondistended Skin: Warm and dry Psych: Negative for anxiety: Neuro: No focal deficits IVs and Medications Medications Reviewed: Medications were reviewed in detail Lab and Diagnostics Result Diagram: 07/10/16 1720 07/12/16 0615 X-Rays, CTs and MRIs X-RAY CHEST, TWO VIEWS 07/10 IMPRESSION: 1. Developing bibasilar airspace disease is suspicious for pneumonia. There may be trace left effusion. Dictated by: Hung Griffin M.D. on 07/10/2016 at 15:09 Approved by: Hung Griffin M.D. on 07/10/2016 at 15:11 Cardiac Echo Impressions Interpretation Summary Left ventricular systolic function is severely reduced with the ejection fraction estimated to be 25-30% with severe global hypokinesis but no focal wall motion abnormalities. The left ventricle is moderately dilated. Diastolic function could not be accurately assessed due to unobtainable data but the E/E' ratio is severely increased, suggesting possible increased filling pressures. The right ventricle is moderately dilated and right ventricular systolic function is moderately reduced. There is moderate-severe pulmonary hypertension with the right ventricular systolic pressure estimated at 64 mmHg assuming a right atrial pressure of 15 mm Hg. The left atrium is severely dilated and the right atrium is mildly dilated. There is moderate mitral regurgitation and mild to moderate tricuspid regurgitation but no other significant valvular heart disease. The ascending aorta is mildly enlarged and the abdominal aorta is mildly dilated. Reading Physician:12:41 PM Assessment & Plan Eduardo Martinez is a 80 year old male with COPD, diabetes mellitus, and pancreatic cancer in remission s/p resection and chemotherapy, who was sent to [facility] emergency department by his regular doctor for shortness of breath. 1. Acute Hypoxic Respiratory Failure secondary to Systolic Heart Failure. Plan review the place to be CHF exacerbation Present on admission - continue supplemental oxygen - DuoNeb treatments scheduled 2. Acute on chronic congestive heart failure of Systolic Heart Failure: Improving -- Lasix 40 mg 3 times a day IV -- Morphine as needed for dyspnea -- Nitroglycerin when necessary -- Oxygen when necessary -- Echocardiogram already performed: Showed 25-30% EF, Mod dilation of LV, Mod- severe pulm HTN, mod MR -- Daily weights, accurate I and O's -- Cardiology is consulted: Dr. Johnson has seen the patient. He will plan a cath procedure on 07/13.We appreciate their recommendations. Added Aldactone per their recommendation -- Lasix is reduced to BID IV 40 mg on 07/12 -- Added Metoprolol 12.5 mg BID. Now pt is on lisinopril, metoprolol and statin + spironolactone 3. Diabetes Type 2. Some hypoglycemic episodes recently due to decreased appetite. Expecting some increase from the steroids - high correction Lispro algorithm - converting Levemir to Lantus 10 units bid sq - checking A1c = 10.2 -- Cut night time lantus to 6 units, removed meal time insulin as his BG was 80 twice today in the afternoon. He has had hypoglycemia at home prior to arrival -- Continue to monitor 4. Pancreatis cancer in remission with Chronic pancreatitis - continue Creon with meals - continue outpatient surveillance with the Oncology clinic 5. Aortic Aneurysm There is fusiform dilatation of the infrarenal abdominal aorta which measures 3.5 x 3.9 cm in diameter and is unchanged in the study dated 12/11/13. - needs yearly imaging to monitor progression - no indications for Aortic surgery at this time 5. Dyslipidemia - continue Pravastatin 20 mg daily - Acetaminophen as needed for mild pain/fever/headache - Bowel regimen as needed - Antiemetic as needed 6. Hypokalemia: -- Patient is repleted with 40 meq potassium -- Continue to monitor with daily labs 7. SVT on monitor: 12 beat v-tach this PM in 140's. Pt is asymptomatic -- Metoprolol is given -- Cardiology is consulted. Patient admitted under inpatient status with expected length of stay > 2 midnights for severity of present symptoms, complexities of treatment plan and risk for adverse event . VTE Mechanical Devices: Intermittant Pneumatic CD Resuscitation Status: CPR: Attempt Resuscitation Time spent 30 min Jaye Leon DO July 12, 2016 16:29
[2016-07-13] VITALS (20 sets, daily range): BP systolic 97–122; BP diastolic 65–79; PULSE 71–88; RESP 12–20; O2SAT 91–97
[2016-07-13] MEDS: Heparin 5,000 Unit/mL Inj SUBQ SCH ×3 (00:32→16:30)
[2016-07-13] MEDS ORDERED: diphenhydrAMINE 25 mg Capsule PO ONE (06:00)
[2016-07-13 06:57] LABS: Mean Corpuscular Hemoglobin 30.7 pg (27.0-35.0); Mean Corpuscular Volume 92.6 fL (81-100)
--- NOTE | 2016-07-13 06:59 | CONS ---
[address] [address] CONSULTATION REPORT PATIENT: MELISSA EPSTEIN : 1935 MR#: [id number] ADMIT: 07/10/2016 JOB ID: [id number] DATE OF SERVICE: 07/12/2016 REASON FOR CONSULT: Hospitalist team asked me to see this patient regarding symptomatology of CHF, shortness of breath as well as LV dysfunction on echocardiogram. CHIEF COMPLAINT: Worsening shortness of breath from last three months. 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 According to the patient, he has shortness of breath on exertion for a long time, but from last three months it is getting worse. It has reached the extent that he was short of breath at rest. He was coughing up some whitish sputum. He did not have any typical anginal pain, but during shortness of breath he used to feel that his chest is getting tight. No significant palpitation or hemoptysis. No fever, chills. He did not have any significant PND, orthopnea or weight gain. He got admitted to the hospital. He is being treated for COPD exacerbation. Yesterday, he had a 2D echo which revealed moderately dilated left ventricle with LV end-diastolic diameter 6.4 cm with global hypokinesis with LV ejection fraction 25% to 30%, moderately dilated right ventricle with moderately reduced right ventricular function, severe left atrium enlargement, moderate mitral regurgitation, without any significant aortic stenosis or aortic regurgitation, mild to moderate TR, pulmonary artery systolic pressure 64 mmHg with right atrial pressure about 15 mmHg suggestive of severe pulmonary hypertension without any pericardial effusion. The patient was started on CHF treatment. He received IV Lasix. He felt better. Today, cardiology consult was sought. In the hospital, his troponin was normal. The patient denies previous history of myocardial infarction or congestive heart failure, rheumatic heart disease, or significant arrhythmias. He has history of smoking for about more than 50 years. When he was diagnosed with pancreatic cancer in 2006, at that time he stopped smoking. In 60s, he was a heavy alcoholic but, later on, he was not drinking much. PAST MEDICAL HISTORY: History of severe COPD with centrilobular emphysema, history of T3 N0 pancreatic head carcinoma diagnosed in 2006, status post Whipple procedure, insulin requiring diabetes since then, pancreatic enzymatic exocrine deficiency, shoulder tendinitis, history of kidney stone, osteoarthritis, lumbago, abdominal aortic aneurysm and the size is 3.5/3.[address] scan done on June 22, 2016 with scattered atherosclerotic plaque in the aorta and fatty infiltration of the liver. History of chronic hepatitis C. Patient denies any treatment for hepatitis C. According to him, it is mild. It is not causing any damage to his liver. History of hyperlipidemia. PAST SURGICAL HISTORY: Exploratory laparotomy and Whipple procedure. FAMILY HISTORY: Positive for alcohol disease as well as cold agglutinin, AB syndrome. SOCIAL HISTORY: As stated above. ALLERGIES: He is allergic to: 1. OXYCODONE. 2. BACLOFEN. 3. ACETAMINOPHEN. HOME MEDICATIONS: 1. Vitamins. 2. Tamsulosin 0.4 mg twice a day. 3. Proventil and Symbicort inhalers. 4. Pravastatin 40 mg daily. 5. Potassium 99 mg daily. 6. Magnesium 250 mg daily. 7. Insulin. 8. Diflucan 100 mg tablet daily. 9. Chromium tablet 400 mcg daily. 10. Calcium citrate. 11. Creon. REVIEW OF SYSTEMS: Ten point review of systems were obtained and negative except as stated above. PHYSICAL EXAMINATION: Blood pressure 119/68, heart rate 85, respiratory rate 18, oxygen saturation 90% on 2 L. No significant anemia or jaundice. Neck: No apparent JVP at present. No obvious carotid bruits. Chest: Decreased air entry and bilateral prolonged expiratory phase without any significant rhonchi at present. CVS: S1 appears normal. P2 appears prominent. No S3, no S4. No significant murmur other than very soft ejection systolic murmur at the apex. Abdomen: No obvious pulsatile mass felt. Extremity: No significant pedal edema. Vascular: No evidence of critical limb ischemia. E/M ENGINEER: Alert, oriented to time, place, and person. No obvious motor or sensory deficit. LABORATORIES: WBC 6.0, hemoglobin 13.8, platelets 156, polymorphs 71.9. Sodium 142, potassium 3.4, BUN 20, creatinine 0.77, magnesium 2.0. Troponin T less than 0.010. Normal bilirubin, AST, ALT, and alkaline phosphatase. ProBNP 4472. EKG on admission revealed sinus rhythm with left anterior fascicular block with QRS duration 129 with lateral asymmetrical T-wave inversion, poor R-wave progression, QTc 477 msec. No obvious typical left bundle-branch block seen. No old EKG to compare. On telemetry, the patient has short bursts of nonsustained ventricular tachycardia, rate about 150-160 beats per minute. ASSESSMENT AND PLAN: Likely acute on chronic predominantly systolic congestive heart failure due to dilated cardiomyopathy with profound left ventricular dysfunction without any critical valvular pathology on the left side with severe pulmonary hypertension which appears to be multifactorial likely due to underlying severe emphysema as well as left-sided heart failure with RV dysfunction with underlying known chronic obstructive pulmonary disease, hypoxic respiratory failure, history of 3.5 x 3.9 cm infrarenal fusiform abdominal aneurysm, with scattered plaque in the aortic arch and aorta, hyperlipidemia, history of pancreatic cancer status post Whipple procedure in 2006, now he is in remission, history of hepatitis C with normal AST, ALT, bilirubin without any known history of cirrhosis liver, fatty liver. Considering his age, risk factors, the possibility of ischemic cardiomyopathy is there. In view of profound left ventricular dysfunction, it is important to rule out coronary artery disease as an etiology. Discussed with the patient benefits and risks which include, but are not limited to, risk of bleeding, groin complication, myocardial infarction, stroke, , renal insufficiency, and peripheral vascular complication, etc. in details. The patient verbalizes understanding. All the questions were answered. Considering his overall comorbid conditions, the patient is high-risk for the procedure. At present, he is not expecting any upcoming surgery. There is no active bleeding. He also has history of DVT in remote past, total three times. He used to be on Coumadin, then he stopped taking it. At present, clinically, no obvious DVT features. Meanwhile, will recommend optimization of medical treatment. Consider adding Aldactone as well. The patient has nonsustained ventricular tachycardia. His potassium is mildly low. Will recommend keeping potassium more than 4. He is already started on small dose of beta sharifa. At present, he is not actively wheezing. Because of hepatitis C, at present, I am not changing pravastatin to high intensity statin as he is tolerating pravastatin. Further plan will be based on the result of above-mentioned diagnostic tests. I will discuss his case with our electric wheelchair repairer, Dr. White. Thanks for the cardiology consult. TOTAL TIME SPENT: Today about 75 minutes including having discussion with the hospitalist team.
[2016-07-13 07:09] LABS: INR 1.05 ratio
[2016-07-13] MEDS: Fluticasone-Salmeterol 500-50 Inhaler INHALATION SCH ×2 (07:44→20:10)
[2016-07-13] MEDS ORDERED: Heparin 1,000 Units/500 mL NS Premix IV ONE (07:48)
[2016-07-13] MEDS ORDERED: Heparin 10,000 Unit/1,000 mL NS Premix IV ONE (07:48)
[2016-07-13] MEDS: Pancrelipase 5,000 Unit Capsule PO SCH ×3 (08:00→18:08)
[2016-07-13] MEDS: Insulin LISPRO 300 Unit/3 mL Inj SUBQ SCH ×4 (08:00→21:53)
[2016-07-13] MEDS: POTASSIUM GLUCONATE 198 MG PO SCH (08:00)
--- NOTE | 2016-07-13 08:06 | NUR ---
Pt off floor for Heart Cath/PCI at 0805. Report called to JOSEFINA nurse. Administered some morning meds per Cath direction.
[2016-07-13] MEDS ORDERED: fentaNYL-PF 50 mCg/mL 2 mL Inj ONE (08:11)
[2016-07-13] MEDS ORDERED: 0.9% Sodium Chloride 1,000 ML ONE (08:12)
--- NOTE | 2016-07-13 09:52 | CS94 ---
[address] [address] DIAGNOSTIC CARDIAC CATHETERIZATION PATIENT: MELISSA EPSTEIN : 1935 MR#: [id number] ADMIT: 07/10/2016 JOB ID: [id number] SERVICE DATE: 07/13/2016 INDICATION FOR LEFT HEART CATHETERIZATION: This 80-year-old pleasant male who has a history of severe emphysema, COPD, insulin-requiring diabetes mellitus, pancreatic cancer, status post Whipple procedure in 2006, without any recurrence of cancer, history of two cycles of chemotherapy in the past, hepatitis C without any cirrhosis liver, 3.5 x 3.9 cm abdominal infrarenal fusiform aneurysm, hyperlipidemia, history of tobacco abuse in the past presented with worsening shortness of breath as well as some symptoms of congestive heart failure. He underwent a 2D echo, which revealed moderately dilated left ventricle with profound LV dysfunction with LV ejection fraction 25%-30% with moderate MR, RV dysfunction with pulmonary artery systolic pressure about 64 mmHg. Considering his risk factors for coronary artery disease, it was decided to proceed with left heart catheterization to rule out coronary artery disease as an etiology of his underlying LV dysfunction. Next informed consent was obtained after explaining benefits and the risks, which include, but not limited to, risk of bleeding, groin complication, peripheral vascular complications, stroke, renal insufficiency, , anaphylactic reactions, etc., in details. The patient verbalizes understanding. All the questions were answered. An informed consent was obtained. SURGEON: Felicitas Johnson M.D. PROCEDURES: 1. Left heart catheterization. 2. Coronary arteriography. 3. Left ventricular pressure measurement with 6-Palestinian pigtail catheter. DESCRIPTION OF PROCEDURE: Right groin was cleaned, prepped, and draped in the usual sterile fashion. The skin and subcutaneous tissue was anesthetized with 1% lidocaine. Right femoral artery was accessed. A 6-Palestinian sheath was introduced into the right femoral artery using modified Seldinger technique. We got access was in first stick. Then we used the JR4 and Wooly wire to negotiate the abdominal aortic aneurysm and cross it without any difficulty or resistance. We did it under constant fluoroscopic guidance. Then for the rest of the cases, we used long exchange wire to avoid any manipulation inside the aneurysm. Right coronary artery was engaged with 6-Palestinian JR4 and left coronary artery was engaged with 6-Palestinian JL4 catheter. Left ventricular pressure measurement was done with 6-Palestinian pigtail catheter. All the catheters were advanced over the guidewire and flushed with heparinized saline. All the exchanges were made over the guidewire. The patient tolerated the procedure. There were no immediate complications. Overall 40 cc [id number]-[id number] dye was used. Hemostasis will be achieved by manual compression. HEMODYNAMICS: LV systolic pressure was about 101 mmHg, aortic pressure 104/58 mmHg. LVEDP was 25-30 mmHg. Hence, we did not do left ventriculogram. There was no significant pullback gradient between the aorta and left ventricle. Left ventriculography was not performed because of LVEDP 25-30 which is high. Coronary artery anatomy: 1. Left main artery. The left main artery was free of any significant disease. 2. Left anterior descending artery. The left anterior descending artery stops short before the apex. LAD and its diagonal branches were free of any critical atherosclerotic disease. They were tortuous. 3. Circumflex. Circumflex is a nondominant artery and was free of any critical disease. 4. Right coronary artery. The right coronary artery is a large dominant artery and gives rise to multiple PDA branches. Right coronary artery and its branches were free of any significant coronary artery disease. CONCLUSION: No significant coronary artery disease. 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 LVEDP 25-30 mmHg suggestive of increased filling pressure.
--- NOTE | 2016-07-13 10:19 | NUR ---
report called for pt floor transfer. Stable recovery, taking PO well, No issues with the rt groin.
--- NOTE | 2016-07-13 12:24 | NUR ---
Social Work: Readiness for d/c Data: Pt is on day 3 of hospitalization. Pt discussed in rounds, states pt likely to d/c tomorrow. Pt no longer interested in HH and notified TRIMMER CLIMBER. No other d/c planning needs anticipated. TRIMMER CLIMBER will continue to follow if needs arise. Assessment: Pt who is independent at baseline. Plan: Pt will d/c home via POV when medically stable. Pt declining HH at this time. TRIMMER CLIMBER will continue to follow if needs arise. TON Ramírez
--- NOTE | 2016-07-13 17:44 | NUR ---
POST HEART CATH Eval Pt exhibiting no signs of bleeding/hemorrhage at puncture site. Dressing CDI. Pressure applied for 4H post dressing. HOB remained <20 degrees. Pt denies Pain or discomfort at the site. Vitals obtained and recorded per MD instructions. No bleeding after first time up. Pt able to void without incident. Plan for dressing to be removed around 1030 tomorrow 07/14.
--- NOTE | 2016-07-13 22:47 | NUR ---
6 beats of Vtach Per telephonic rn pt had 6 beat run of vtach. Pt assesed and found to be asymptomatic and unaware of event. MD notified, no new orders given at this time.
--- NOTE | 2016-07-13 23:36 | PCM.PNMED ---
Subjective Date of Service July 13, 2016 Subjective Patient is seen and examined. He denies overnight fevers and chills. His fairly comfortable still on oxygen via nasal cannula but no longer dyspneic on exertion. I explained to him the findings of his Procedure, he did not quite seem to grasp it in the beginning, but after further explanation he seemed to understand. 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 Exam Vital Signs Vital Sign - Last Date Time Temp Pulse Resp B/P Pulse Ox O2 Delivery O2 Flow Rate FiO2 07/13/16 21:48 36.4 71 18 101/66 96 Nasal Cannula 1.00 Intake and Output 07/12/16 07/12/16 07/13/16 Cumulative From/Thru 15:00 23:00 07:00 07/10/16 15:42 - 07/13/16 06:47 Intake Total 1500 ml 950 ml 4970 ml Output Total 2650 ml 1050 ml 6375 ml Balance -1150 ml -100 ml -1405 ml Intake Oral 1500 ml 950 ml 4970 ml Output Urine Total 2650 ml 1050 ml 6375 ml # Voids 6 # Bowel Movements 1 Lab and Diagnostics Result Diagram: 07/13/16 0552 07/13/16 0552 X-Rays, CTs and MRIs X-RAY CHEST, TWO VIEWS 07/10 IMPRESSION: 1. Developing bibasilar airspace disease is suspicious for pneumonia. There may be trace left effusion. Dictated by: Hung Griffin M.D. on 07/10/2016 at 15:09 Approved by: Hung Griffin M.D. on 07/10/2016 at 15:11 Cardiac Echo Impressions Interpretation Summary Left ventricular systolic function is severely reduced with the ejection fraction estimated to be 25-30% with severe global hypokinesis but no focal wall motion abnormalities. The left ventricle is moderately dilated. Diastolic function could not be accurately assessed due to unobtainable data but the E/E' ratio is severely increased, suggesting possible increased filling pressures. The right ventricle is moderately dilated and right ventricular systolic function is moderately reduced. There is moderate-severe pulmonary hypertension with the right ventricular systolic pressure estimated at 64 mmHg assuming a right atrial pressure of 15 mm Hg. The left atrium is severely dilated and the right atrium is mildly dilated. There is moderate mitral regurgitation and mild to moderate tricuspid regurgitation but no other significant valvular heart disease. The ascending aorta is mildly enlarged and the abdominal aorta is mildly dilated. Reading Physician:12:41 PM Assessment & Plan Eduardo Martinez is a 80 year old male with COPD, diabetes mellitus, and pancreatic cancer in remission s/p resection and chemotherapy, who was sent to [facility] emergency department by his regular doctor for shortness of breath. 1. Acute Hypoxic Respiratory Failure secondary to Systolic Heart Failure. Plan review the place to be CHF exacerbation Present on admission - continue supplemental oxygen - DuoNeb treatments scheduled 2. Acute on chronic congestive heart failure of Systolic Heart Failure: Improving -- Lasix 40 mg 3 times a day IV -- Morphine as needed for dyspnea -- Nitroglycerin when necessary -- Oxygen when necessary -- Echocardiogram already performed: Showed 25-30% EF, Mod dilation of LV, Mod- severe pulm HTN, mod MR -- Daily weights, accurate I and O's -- Cardiology is consulted: Dr. Johnson has seen the patient. He will plan a cath procedure on 07/13.We appreciate their recommendations. Added Aldactone per their recommendation -- Lasix is reduced to BID IV 40 mg on 07/12 -- Added Metoprolol 12.5 mg BID. Now pt is on lisinopril, metoprolol and statin + spironolactone 3. Diabetes Type 2. Some hypoglycemic episodes recently due to decreased appetite. Expecting some increase from the steroids - high correction Lispro algorithm - converting Levemir to Lantus 10 units bid sq - checking A1c = 10.2 -- 07/12 Cut night time lantus to 6 units, removed meal time insulin as his BG was 80 twice today in the afternoon. He has had hypoglycemia at home prior to arrival -- 07/13 he is only on sliding scale. 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 Pancreatis cancer in remission with Chronic pancreatitis - continue Creon with meals - continue outpatient surveillance with the Oncology clinic 5. Aortic Aneurysm There is fusiform dilatation of the infrarenal abdominal aorta which measures 3.5 x 3.9 cm in diameter and is unchanged in the study dated 12/11/13. - needs yearly imaging to monitor progression - no indications for Aortic surgery at this time 5. Dyslipidemia - continue Pravastatin 20 mg daily - Acetaminophen as needed for mild pain/fever/headache - Bowel regimen as needed - Antiemetic as needed 6. Hypokalemia: -- Patient is repleted with 40 meq potassium 07/12 -- Continue to monitor with daily labs 7. SVT on monitor: 12 beat v-tach this PM in 140's. Pt is asymptomatic -- Metoprolol is given -- Cardiology is consulted. Patient admitted under inpatient status with expected length of stay > 2 midnights for severity of present symptoms, complexities of treatment plan and risk for adverse event . VTE Mechanical Devices: Intermittant Pneumatic CD Resuscitation Status: CPR: Attempt Resuscitation Time spent 25 min Jaye Leon DO July 13, 2016 23:36
[2016-07-14] VITALS (10 sets, daily range): BP systolic 96–105; BP diastolic 59–69; PULSE 70–84; RESP 18–20; O2SAT 93–95
[2016-07-14] MEDS: Heparin 5,000 Unit/mL Inj SUBQ SCH ×3 (00:39→17:47)
--- NOTE | 2016-07-14 05:28 | NUR ---
run of v-tach Per telemarketing sales representative Pt had a 10 beat run of v-tach. Pt asleep at time of event and asymptomatic. notified.
--- NOTE | 2016-07-14 06:41 | NUR ---
Shift Note + Telemetry Pt was very pleasant and cooperative throughout shift. Pt slept through shift except to void every few hours. No complaints of pain, dyspnea, etc. Pt did have a two separate runs of V-Tach through shift, once around 2230, and again around 0530 (with notes for both by SANTIW). Pt was asymptomatic both times; provider informed of each.
[2016-07-14] MEDS: POTASSIUM GLUCONATE 198 MG PO SCH (07:27)
[2016-07-14] MEDS: Pancrelipase 5,000 Unit Capsule PO SCH ×3 (08:05→17:45)
[2016-07-14] MEDS: Insulin LISPRO 300 Unit/3 mL Inj SUBQ SCH ×4 (08:11→20:59)
[2016-07-14] MEDS: Fluticasone-Salmeterol 500-50 Inhaler INHALATION SCH ×2 (08:11→20:57)
[2016-07-14] MEDS ORDERED: Furosemide 10 mg/mL 4 mL Inj IVPUSH SCH (08:30)
[2016-07-14] MEDS ORDERED: Insulin GLARgine 100 Unit/mL Syringe SUBQ SCH (08:30)
--- NOTE | 2016-07-14 10:31 | NUR ---
RAPHAEL signed by
--- NOTE | 2016-07-14 18:21 | NUR ---
Activity/drsg/blood sugar Pt up, amb in hallway 3x this shift. He did report some soreness to R groin incision following second walk, resolved with rest. Drsg to R groin site removed, no swelling/bleeding a very minimal bruising. Blood sugars this shift: 178, 330, 331. Pt resting, bed in lowest, locked position and call light in reach. Addendum: 07/14/16 at 1822 by MELY GONZALEZ RN Vital signs stable this shift, Pt remained SR 70-80's with IVCD and PVC's per personnel monitor.
--- NOTE | 2016-07-14 18:56 | NUR ---
02 Pt wearing 1L via NC while in room. Pt has been up, amb around unit on RA, denies any SOB/distress.
--- NOTE | 2016-07-14 22:41 | PCM.PNMED ---
Subjective Date of Service July 14, 2016 Subjective Patient is seen and examined. He is off of oxygen feeling much better and ambulating the hallways. States that the right groin area where he had a cath is hurting a little bit with walking Exam Vital Signs Vital Sign - Last Date Time Temp Pulse Resp B/P Pulse Ox O2 Delivery O2 Flow Rate FiO2 07/14/16 06:11 36.6 77 20 103/69 93 Nasal Cannula 1.00 Intake and Output 07/13/16 07/13/16 07/14/16 Cumulative From/Thru 15:00 23:00 07:00 07/10/16 15:42 - 07/14/16 06:59 Intake Total 791 ml 800 ml 6561 ml Output Total 525 ml 675 ml 7575 ml Balance 266 ml 125 ml -1014 ml Intake Oral 791 ml 800 ml 6561 ml Output Urine Total 525 ml 675 ml 7575 ml # Voids 6 # Bowel Movements 1 2 Exam Gen.: Appears to be in moderate distress HEENT: Normocephalic, atraumatic Lungs: Much improved breathing sounds Heart: Distant heart sounds are masked by breathing sounds Abd: NT/ND, soft neck: Trachea central Extremities: trace pedal edema Abdomen: Nondistended Skin: Warm and dry, no abnormal findings in right groin area Psych: Negative for anxiety: Neuro: No focal deficits IVs and Medications Medications Reviewed: Medications were reviewed in detail Lab and Diagnostics Result Diagram: 07/13/16 0552 07/14/16 0555 X-Rays, CTs and MRIs X-RAY CHEST, TWO VIEWS 07/10 IMPRESSION: 1. Developing bibasilar airspace disease is suspicious for pneumonia. There may be trace left effusion. Dictated by: Hung Griffin M.D. on 07/10/2016 at 15:09 Approved by: Hung Griffin M.D. on 07/10/2016 at 15:11 Cardiac Echo Impressions Interpretation Summary Left ventricular systolic function is severely reduced with the ejection fraction estimated to be 25-30% with severe global hypokinesis but no focal wall motion abnormalities. The left ventricle is moderately dilated. Diastolic function could not be accurately assessed due to unobtainable data but the E/E' ratio is severely increased, suggesting possible increased filling pressures. The right ventricle is moderately dilated and right ventricular systolic function is moderately reduced. There is moderate-severe pulmonary hypertension with the right ventricular systolic pressure estimated at 64 mmHg assuming a right atrial pressure of 15 mm Hg. The left atrium is severely dilated and the right atrium is mildly dilated. There is moderate mitral regurgitation and mild to moderate tricuspid regurgitation but no other significant valvular heart disease. The ascending aorta is mildly enlarged and the abdominal aorta is mildly dilated. Reading Physician:12:41 PM Assessment & Plan Eduardo Martinez is a 80 year old male with COPD, diabetes mellitus, and pancreatic cancer in remission s/p resection and chemotherapy, who was sent to [facility] emergency department by his regular doctor for shortness of breath. 1. Acute Hypoxic Respiratory Failure secondary Acute on chronic congestive heart failure of Systolic Heart Failure: Improving -- Lasix 40 mg 3 times a day IV was given initially -- Morphine as needed for dyspnea -- Nitroglycerin when necessary -- Oxygen when necessary -- Echocardiogram already performed: Showed 25-30% EF, Mod dilation of LV, Mod- severe pulm HTN, mod MR -- Daily weights, accurate I and O's -- Cardiology is consulted: Dr. Johnson has seen the patient. He will plan a cath procedure on 07/13.We appreciate their recommendations. Added Aldactone per their recommendation -- Lasix is reduced to BID IV 40 mg on 07/12, reduce to PO 40 mg on 07/14 am -- Dr. Johnson recommends a life vest--> ICD plan, F/U with Dr. Rosas, electro psychologist research assistant: We will discuss this with Dr. Montoya, 07/14 a.m. -- 07/14 Dr. Lozano was contacted regarding the above plan, he says to contact the [employer] life vest agent and have the patient follow up with Dr. Johnson, who can then arrange for a follow-up with Dr. Rosas as his ICD placement in ears. -- zoll Is contacted, information is sent. [employer] bmw sales consultant will come in tomorrow for fitting the patient with a life vest. -- Optimize therapy with lisinopril, metoprolol and statin + spironolactone 2. Pulmonary HTN: New diagnosis -- Follow cardiology recommendations 3. Diabetes Type 2. Some hypoglycemic episodes recently due to decreased appetite. Expecting some increase from the steroids - high correction Lispro algorithm - converting Levemir to Lantus 10 units bid sq - checking A1c = 10.2 -- 07/12 Cut night time lantus to 6 units, removed meal time insulin as his BG was 80 twice today in the afternoon. He has had hypoglycemia at home prior to arrival -- 07/13 he is only on sliding scale. 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 Pancreatis cancer in remission with Chronic pancreatitis - continue Creon with meals - continue outpatient surveillance with the Oncology clinic 5. Aortic Aneurysm There is fusiform dilatation of the infrarenal abdominal aorta which measures 3.5 x 3.9 cm in diameter and is unchanged in the study dated 12/11/13. - needs yearly imaging to monitor progression - no indications for Aortic surgery at this time 5. Dyslipidemia - continue Pravastatin 20 mg daily - Acetaminophen as needed for mild pain/fever/headache - Bowel regimen as needed - Antiemetic as needed 6. Hypokalemia: Resolved -- Patient is repleted with 40 meq potassium 07/12 -- Continue to monitor with daily labs 7. SVT on monitor: 12 beat v-tach this PM in 140's. Pt is asymptomatic -- Metoprolol is given -- Cardiology is consulted. -- Dr. Johnson recommends Life Vest-->ICD, F/U with Dr. Rosas, electro informatics manager. He stated that this is also communicated to Dr. Montoya, informatics manager identification and records commander during daytime -- Called the Miko teran, who will come tomorrow am to fit the vest as above Patient admitted under inpatient status with expected length of stay > 2 midnights for severity of present symptoms, complexities of treatment plan and risk for adverse event. The patient can be discharged home tomorrow following the life vest fitting . VTE Mechanical Devices: Intermittant Pneumatic CD Resuscitation Status: CPR: Attempt Resuscitation Time spent 25 min Pain Evaluation: Adequate Pain Control VTE Mechanical Devices: Intermittant Pneumatic CD Resuscitation Status: CPR: Attempt Resuscitation Time spent 30 min Jaye Leon DO July 14, 2016 08:05
[2016-07-15] VITALS (13 sets, daily range): BP systolic 93–118; BP diastolic 53–72; PULSE 77–100; RESP 16–20; O2SAT 91–99
[2016-07-15] MEDS: Heparin 5,000 Unit/mL Inj SUBQ SCH ×3 (00:22→18:41)
--- NOTE | 2016-07-15 01:11 | NUR ---
activity patient ambulates in segal on room air. denies dyspnea. steady gait. concerned about "life change" regarding possible life vest. given emotional support.
[2016-07-15] MEDS: Pancrelipase 5,000 Unit Capsule PO SCH ×3 (07:57→18:41)
[2016-07-15] MEDS: POTASSIUM GLUCONATE 198 MG PO SCH (07:57)
[2016-07-15] MEDS: Fluticasone-Salmeterol 500-50 Inhaler INHALATION SCH ×2 (07:59→20:58)
[2016-07-15] MEDS: Insulin LISPRO 300 Unit/3 mL Inj SUBQ SCH ×4 (07:59→21:00)
[2016-07-15] MEDS: Insulin GLARgine 100 Unit/mL Syringe SUBQ SCH ×2 (08:05→20:59)
[2016-07-15] MEDS ORDERED: SPIR25TA PO (08:28)
[2016-07-15] MEDS ORDERED: MAGN400T23 PO (08:28)
[2016-07-15] MEDS ORDERED: MONT10TA23 PO (08:28)
[2016-07-15] MEDS ORDERED: METO25TA6 PO (08:28)
[2016-07-15] MEDS ORDERED: NITR0.4T SL (08:28)
[2016-07-15] MEDS ORDERED: LISI-571 PO (08:28)
--- NOTE | 2016-07-15 10:36 | NUR ---
Social Work: Readiness for Discharge D: Pt is on day 5 of hospitalization. Pt likely to discharge today per MD. PT recommends HH but pt continues to decline. Pt wanted to discuss social security disability and requested a letter from hospitalist. SW informed pt that hospitalist intends to write work relief note and encouraged pt to discuss request for social security disability letter with pt's outpt clinical nurse occupational medicine. Pt was agreeable to plan. SW does not anticipate any discharge needs at this time. SW will continue to follow if needs arise. A: Pt who is independent at baseline. Pt for whom HH has been deemed medically necessary but pt declines. P: Pt will likely discharge home today via POV when medically stable. Pt declining HH at this time. SCIENTIFIC SOFTWARE ENGINEER will continue to follow if needs arise. TON Turpin
--- NOTE | 2016-07-15 18:45 | NUR ---
7 beats of Vtach Per telephone solicitor supervisor pt had 6 beat run of V-tach. Pt asymptomatic, sitting up eating dinner, unaware of event. MD notified, new order generated. Call light in reach, will continue to monitor
[2016-07-16] VITALS (9 sets, daily range): BP systolic 102–126; BP diastolic 63–70; PULSE 73–82; RESP 18–22; O2SAT 93–96
--- NOTE | 2016-07-16 01:04 | NUR ---
abd. pain patient complains of RLQ abd pain. rates 8. sudden onset. acute. very uncomfortable looking. hyperactive bowel tones. abd. is round. denies nausea. notified dr mcdonald via cookpaging. patient does not want morphine for pain. states "it doesn't work." requests dilaudid. notified dr mcdonald. given supportive care. Addendum: 07/16/16 at 0124 by KYLE KEENE RN patient states "i think its because i haven't been taking my home pancrease medication. the substitute is not the same as mine." will cont. to monitor.
--- NOTE | 2016-07-16 01:39 | PCM.PNMED ---
Subjective Date of Service July 16, 2016 Subjective Patient is seen and examined. He states that his right groin pain has resolved since last night, is continuing to ambulate. He is on oxygen at the time of this visit but he spent most of his day without. 6 beat nonsustained SVT was reported this evening. Exam Vital Signs Vital Sign - Last Date Time Temp Pulse Resp B/P Pulse Ox O2 Delivery O2 Flow Rate FiO2 07/16/16 00:44 36.6 76 20 107/63 94 Room Air 07/15/16 19:28 1.00 Intake and Output 07/15/16 07/15/16 07/16/16 Cumulative From/Thru 15:00 23:00 07:00 07/10/16 15:42 - 07/16/16 00:50 Intake Total 2450 ml 12486 ml Output Total 1375 ml 27835 ml Balance 1075 ml -603 ml Intake Oral 2450 ml 73911 ml Output Urine Total 1375 ml 26305 ml # Voids 11 # Bowel Movements 2 4 Exam Gen.: Appears to be in moderate distress HEENT: Normocephalic, atraumatic Lungs: Much improved breathing sounds Heart: Regular rate and rhythm Abd: NT/ND, soft neck: Trachea central Extremities: trace pedal edema Abdomen: Nondistended Skin: Warm and dry Psych: Negative for anxiety: Neuro: No focal deficits IVs and Medications IV Fluids None Medications Reviewed: Medications were reviewed in detail Lab and Diagnostics Result Diagram: 07/13/16 0552 07/15/16 0638 X-Rays, CTs and MRIs X-RAY CHEST, TWO VIEWS 07/10 IMPRESSION: 1. Developing bibasilar airspace disease is suspicious for pneumonia. There may be trace left effusion. Dictated by: Hung Griffin M.D. on 07/10/2016 at 15:09 Approved by: Hung Griffin M.D. on 07/10/2016 at 15:11 Cardiac Echo Impressions Interpretation Summary Left ventricular systolic function is severely reduced with the ejection fraction estimated to be 25-30% with severe global hypokinesis but no focal wall motion abnormalities. The left ventricle is moderately dilated. Diastolic function could not be accurately assessed due to unobtainable data but the E/E' ratio is severely increased, suggesting possible increased filling pressures. The right ventricle is moderately dilated and right ventricular systolic function is moderately reduced. There is moderate-severe pulmonary hypertension with the right ventricular systolic pressure estimated at 64 mmHg assuming a right atrial pressure of 15 mm Hg. The left atrium is severely dilated and the right atrium is mildly dilated. There is moderate mitral regurgitation and mild to moderate tricuspid regurgitation but no other significant valvular heart disease. The ascending aorta is mildly enlarged and the abdominal aorta is mildly dilated. Reading Physician:12:41 PM Assessment & Plan Eduardo Martinez is a 80 year old male with COPD, diabetes mellitus, and pancreatic cancer in remission s/p resection and chemotherapy, who was sent to [facility] emergency department by his regular doctor for shortness of breath. 1. Acute Hypoxic Respiratory Failure secondary to Acute on chronic Systolic Heart Failure: Improving -- Lasix 40 mg 3 times a day IV was given initially. Now patient is on 40 mg PO QD -- Morphine as needed for dyspnea -- Nitroglycerin when necessary -- Oxygen when necessary -- Echocardiogram already performed: Showed 25-30% EF, Mod dilation of LV, Mod- severe pulm HTN, mod MR -- Daily weights, accurate I and O's -- Cardiology is consulted: Dr. Johnson has seen the patient. He will plan a cath procedure on 07/13.We appreciate their recommendations. Added Aldactone per their recommendation -- Lasix is reduced to BID IV 40 mg on 07/12, reduce to PO 40 mg on 07/14 am -- Dr. Johnson recommends a life vest--> ICD plan, F/U with Dr. Rosas, electro vice president safety: We will discuss this with Dr. Montoya, 07/14 a.m. -- 07/14 Dr. Damon was contacted regarding the above plan, he says to contact the [employer] life vest agent and have the patient follow up with Dr. Johnson, who can then arrange for a follow-up with Dr. Rosas for his ICD placement in the near future. -- zoll Is contacted, information is sent. [employer]olBeehiveIDdepartment store salesperson will come in for fitting the patient with a life vest: Patient discharge was delayed due to the Not coming on Saturday, he Is expected to come in 07/16 -- Optimize therapy with lisinopril, metoprolol and statin + spironolactone 2. Non-ischemic dilated Cardiolmyopathy: -- -- Optimize therapy with lisinopril, metoprolol and statin + spironolactone 3. Pulmonary HTN: New diagnosis -- Follow cardiology recommendations 4. Diabetes Type 2. Some hypoglycemic episodes recently due to decreased appetite. Expecting some increase from the steroids - high correction Lispro algorithm - converting Levemir to Lantus 10 units bid sq - checking A1c = 10.2 -- 07/12 Cut night time lantus to 6 units, removed meal time insulin as his BG was 80 twice today in the afternoon. He has had hypoglycemia at home prior to arrival -- 07/13 he is only on sliding scale. 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 Pancreatis cancer in remission with Chronic pancreatitis - continue Creon with meals - continue outpatient surveillance with the Oncology clinic 6. Aortic Aneurysm There is fusiform dilatation of the infrarenal abdominal aorta which measures 3.5 x 3.9 cm in diameter and is unchanged in the study dated 12/11/13. - needs yearly imaging to monitor progression - no indications for Aortic surgery at this time 7. Dyslipidemia - continue Pravastatin 20 mg daily 8. Hypokalemia: Resolved -- Patient is repleted with 40 meq potassium 07/12 -- Continue to monitor with daily labs 9. SVT on monitor: 12 beat v-tach this PM in 140's. Pt is asymptomatic -- Metoprolol is given -- Cardiology is consulted. -- Dr. Johnson recommends Life Vest-->ICD, F/U with Dr. Rosas, electro water reclamation systems operator. He stated that this is also communicated to Dr. Montoya, water reclamation systems operator astronomy professor during daytime -- Called the [employer] rep, who will come tomorrow am to fit the vest as above Patient admitted under inpatient status with expected length of stay > 2 midnights for severity of present symptoms, complexities of treatment plan and risk for adverse event. Dr. Damon was contacted regarding the above plan, he says to contact the [employer]oll life vest agent and have the patient follow up with Dr. Johnson, who can then arrange for a follow-up with Dr. Rosas for his ICD placement in the near future. The patient can be discharged home 07/16 following the life vest fitting. . VTE Mechanical Devices: Intermittant Pneumatic CD Resuscitation Status: CPR: Attempt Resuscitation Time spent 25 min Pain Evaluation: Adequate Pain Control VTE Mechanical Devices: Intermittant Pneumatic CD Resuscitation Status: CPR: Attempt Resuscitation Time spent 25 min Jaye Leon DO July 16, 2016 01:39 Time spent 25 min Jaye Leon DO July 16, 2016 01:39
[2016-07-16] MEDS: Heparin 5,000 Unit/mL Inj SUBQ SCH ×3 (01:59→16:30)
[2016-07-16] MEDS: POTASSIUM GLUCONATE 198 MG PO SCH (08:00)
[2016-07-16] MEDS: Insulin LISPRO 300 Unit/3 mL Inj SUBQ SCH ×4 (08:38→20:33)
[2016-07-16] MEDS: Fluticasone-Salmeterol 500-50 Inhaler INHALATION SCH ×2 (08:40→20:37)
[2016-07-16] MEDS: Insulin GLARgine 100 Unit/mL Syringe SUBQ SCH ×2 (08:43→20:33)
[2016-07-16] MEDS: Pancrelipase 5,000 Unit Capsule PO SCH ×3 (08:45→17:11)
--- NOTE | 2016-07-16 12:08 | NUR ---
VTach Pt had 12 bts VTach, reported by tele. Pt asymptomatic, denies CP or any palpitations. Pt peacefully eating lunch in room. paged to update. Addendum: 07/16/16 at 173 by BRANDY HUSSEIN RN [id number] Pt had another 5 bts VTach. Again asymptomatic. Denies CP, heart issues. paged to update. Addendum: 07/16/16 at 1946 by BRANDY HUSSEIN RN Pt had another run of VTach - 31 beats at 1823. paged to update.
--- NOTE | 2016-07-16 14:49 | PCM.PNCARD ---
Subjective Date of service July 16, 2016 Chief Complaint Shortness of breath History of Present Illness 80yoM hx COPD, HLD, DM 1, DVT x3, pancreatic adenocarcinoma s/p chemotherapy in 2006, hepatitis C, and abdominal aortic aneurysm presented to [facility] with increasing dyspnea on exertion, worsening over 3 months, as well as cough productive of white sputum. He was admitted for COPD exacerbation and acute systolic CHF exacerbation. He denied orthopnea, PND, chest pain, palpitations, lightheadedness, or syncope. Cath on 07/13/16 showed no significant coronary artery disease and LVEDP 25-30 mmHg suggestive of increased filling pressure. Today, he reports his shortness of breath on exertion is mostly resolved. He previously could not walk across the room without becoming dyspneic, but now states he has walked 11 laps around the floors without any symptoms. He denies orthopnea, PND, edema, or chest discomfort. PROBLEM LIST #Acute on chronic systolic CHF #Pulmonary hypertension #Abdominal aortic aneurysm (CT abd on 07/10/16 showed 3.5 x 2.9 cm) #Hyperlipidemia #Type 1 diabetes mellitus #Past history of smoking (50 years) #Past history of alcohol abuse (15 years ago) Constitutional: Denies: Chills, Fever, Weakness Eyes: Denies: Vision Changes Respiratory: Reports: Cough, Denies: SOB with Exertion, Shortness of Breath, Wake up Gasping for Breath, Wheezing Gastrointestinal: Denies: Abdominal Pain, Diarrhea, Nausea, Vomiting Musculoskeletal: Denies: Swelling Neurological: Denies: Change in LOC, Dizziness Exam Vital Signs Vital Sign - Last Date Time Temp Pulse Resp B/P Pulse Ox O2 Delivery O2 Flow Rate FiO2 07/16/16 13:49 36.6 79 20 106/65 94 Room Air 07/15/16 19:28 1.00 Intake and Output 07/15/16 07/15/16 07/16/16 Cumulative From/Thru 15:00 23:00 07:00 07/10/16 15:42 - 07/16/16 06:16 Intake Total 2450 ml 100 ml 10322 ml Output Total 1375 ml 475 ml 71974 ml Balance 1075 ml -375 ml -978 ml Intake Oral 2450 ml 100 ml 74285 ml Output Urine Total 1375 ml 475 ml 51501 ml # Voids 11 # Bowel Movements 2 4 Additional Information: General appearance: No apparent distress, well-nourished, pleasant, cooperative HEET: Normocephalic, atraumatic, no scleral icterus, mucous membranes moist Neck: Supple, no JVD, no carotid bruit Cardiovascular: RRR, normal S1 and normal S2, 2/6 systolic murmur at apex, PMI nondisplaced, no peripheral edema Respiratory: Good aeration, CTAB Abdomen: Soft, nontender, nondistended, + bowel sounds Neuro: Alert, no facial droop, tongue midline, able to walk without any difficulty Psych: Appropriate affect Skin: No rashes on face, neck, and lower extremities Lab and Diagnostics Result Diagram: 07/13/16 0552 07/15/16 0638 Assessment & Plan Assessment 80yoM hx COPD, HLD, DM 1, DVT x3, pancreatic adenocarcinoma, hepatitis C, and abdominal aortic aneurysm presented to [facility] with increasing dyspnea on exertion, worsening over 3 months. He was admitted for COPD exacerbation and acute systolic CHF exacerbation. #Acute on chronic systolic CHF: Pt has dilated nonischemic cardiomyopathy with severe left ventricular systolic dysfunction. ProBNP was 4472 on admissoin. Echo showed EF 25-30%, severe global LV hypokinesis, moderate dilation of the LV , severe LA dilation, moderate mitral regurgitation, and moderate-severe pulmonary hypertension. Cardiac cath was negative for any significant ischemic heart disease. On literature review, there does not appear to be a significant benefit from using a wearable cardioverter-defibrillator (Life Vest) in patients with nonischemic cardiomyopathy. Plan as below: - Continue lisinopril 2.5 mg daily - Continue aspirin 81 mg daily - Continue spironolactone 12.5 mg daily - Switch metoprolol tartrate to metoprolol succinate 25 mg bid - Ordered repeat CXR - Continue furosemide 40 mg daily, may decrease to 20 mg if CXR is normal #Pulmonary hypertension: May have multiple causes, given his systolic CHF, severe COPD and history of DVT. Currently diuresing the patient, which he is tolerating well. He is now asymptomatic. - Continue to monitor. # Severe COPD: former smoker. No need for oxygen at this time. Continue to monitor. #Hyperlipidemia: Pt currently on pravastatin with good lipid panel as noted on labs done 07/13/16. - Continue pravastatin 20 mg qhs Cardiology will sign off at this time. Patient should f/u with outpatient [facility] cardiology in [place] in 4-6 weeks. F/U with PCP in 1-2 weeks. Problems: Pain Evaluation: Adequate Pain Control VTE Mechanical Devices: Intermittant Pneumatic CD Resuscitation Status: CPR: Attempt Resuscitation Attending Statement I saw, examined, and evaluated the patient with Dr. Joshua Bauer on 2016 and agree with the note as above along with my edits. Joshua Bauer July 16, 2016 14:49 Vikas Washington MD July 16, 2016 16:41
--- NOTE | 2016-07-16 18:43 | DRSVH ---
PROCEDURE: X-RAY CHEST, TWO VIEWS ([id number]) INDICATIONS: CONGESTIVE HEART FAILURE TECHNIQUE: 2 views of the chest were acquired. COMPARISON: [facility], CR, XR CHEST 2VW, 07/10/2016, 15:52. FINDINGS: Surgical changes and devices: None. Lungs and pleura: No pleural effusions or pneumothorax. Nearly resolved basilar predominant intersti tial pulmonary opacity. Mediastinum: Mediastinal contours are normal. Heart size is normal. Bones and chest wall: No suspicious bony abnormalities. Soft tissues appear unremarkable. IMPRESSION: Nearly resolved CHF. Dictated by: Han Velasquez M.D. on 07/16/2016 at 18:41 Approved by: Han Velasquez M.D. on 07/16/2016 at 18:42
--- NOTE | 2016-07-16 18:50 | PCM.PNMED ---
Subjective Date of Service July 16, 2016 Subjective Reports new onset of right sided abdominal pain. Denies any n/v. Denies any CP. no other new issues/complaints. Exam Vital Signs Vital Sign - Last Date Time Temp Pulse Resp B/P Pulse Ox O2 Delivery O2 Flow Rate FiO2 07/16/16 18:09 36.5 77 18 111/70 95 Room Air 07/15/16 19:28 1.00 Intake and Output 07/15/16 07/15/16 07/16/16 Cumulative From/Thru 15:00 23:00 07:00 07/10/16 15:42 - 07/16/16 06:16 Intake Total 2450 ml 100 ml 91235 ml Output Total 1375 ml 475 ml 29311 ml Balance 1075 ml -375 ml -978 ml Intake Oral 2450 ml 100 ml 71060 ml Output Urine Total 1375 ml 475 ml 55372 ml # Voids 11 # Bowel Movements 2 4 General: Alert, Cooperative, No Acute Distress Head: Normal Eyes: Scleral Anicteric Mouth: Mucous Membr Moist/[place] Neck: Supple Chest & Lungs: Chest Wall Normal, Clear to auscultation & percussion Cardiovascular: Regular Rate/Rhythm Abdomen: Tender (at right abdomin. guarding but no rebound), Non-distended, Normoactive bowel tones, Soft Extremities: No cyanosis/clubbing/edma bilat Neurological: Grossly Neurologically Intact, Normal Speech IVs and Medications Medications Reviewed: Medications were reviewed in detail Lab and Diagnostics Result Diagram: 07/13/16 0552 07/15/16 0638 X-Rays, CTs and MRIs X-RAY CHEST, TWO VIEWS 07/10 IMPRESSION: 1. Developing bibasilar airspace disease is suspicious for pneumonia. There may be trace left effusion. Dictated by: Hung Griffin M.D. on 07/10/2016 at 15:09 Approved by: Hung Griffin M.D. on 07/10/2016 at 15:11 Cardiac Echo Impressions Interpretation Summary Left ventricular systolic function is severely reduced with the ejection fraction estimated to be 25-30% with severe global hypokinesis but no focal wall motion abnormalities. The left ventricle is moderately dilated. Diastolic function could not be accurately assessed due to unobtainable data but the E/E' ratio is severely increased, suggesting possible increased filling pressures. The right ventricle is moderately dilated and right ventricular systolic function is moderately reduced. There is moderate-severe pulmonary hypertension with the right ventricular systolic pressure estimated at 64 mmHg assuming a right atrial pressure of 15 mm Hg. The left atrium is severely dilated and the right atrium is mildly dilated. There is moderate mitral regurgitation and mild to moderate tricuspid regurgitation but no other significant valvular heart disease. The ascending aorta is mildly enlarged and the abdominal aorta is mildly dilated. Reading Physician:12:41 PM Assessment & Plan 80 year old male with COPD, diabetes mellitus, and pancreatic cancer in remission s/p resection and chemotherapy, who was sent to [facility] emergency department by his regular doctor for shortness of breath. # Acute Hypoxic Respiratory Failure secondary to Acute on chronic Systolic Heart Failure. Improving. - Lasix 40 mg 3 times a day IV was given initially. Now patient is on PO QD - IV Morphine as needed for dyspnea - Echocardiogram already performed: Showed 25-30% EF, Mod dilation of LV, Mod- severe pulm HTN, mod MR - Appreciate Cardiology consult. Will followup with recommendations - Cardiac cath on 07/13: " No significant coronary artery disease. Most likely patient has non ischemic dilated cardiomyopathy" - Initial cardiology recommendation was for life vest and consideration of ICD as outpatient. However, recommendation now is for no life vest and instead followup with cardiology in about 4 weeks. - Continue with optimized cardiac medications per cardiology recommendations. - Followup repeat CXR # Acute right sided abdominal pain. not present on admission - Check CT abdomen given severity of pain # Acute on chronic non-ischemic dilated Cardiomyopathy. present on admission. ongoing - Plan as noted above. # Acute on chronic Pulmonary Hypertension. New diagnosis - Follow cardiology as noted above # Diabetes Type 2. Poorly controlled as outpatient. - Continue with ISS - HgA1C 10.2 # Pancreatis cancer in remission with Chronic pancreatitis - continue Creon with meals - continue outpatient surveillance with the Oncology clinic # Aortic Aneurysm - There is fusiform dilatation of the infrarenal abdominal aorta which measures 3.5 x 3.9 cm in diameter and is unchanged in the study dated 12/11/13. - needs yearly imaging to monitor progression - no indications for Aortic surgery at this time # Dyslipidemia - continue Pravastatin 20 mg daily # Acute Hypokalemia, present on admission. Resolved - Continue to monitor # SVT on monitor otherwise asymptomatic. Ongoing - Cardiology consult and plan as noted above Dispo: 1-2 days pending above workup VTE Mechanical Devices: Intermittant Pneumatic CD Resuscitation Status: CPR: Attempt Resuscitation Howard Martinez July 16, 2016 18:50
--- NOTE | 2016-07-16 19:56 | DRSVH ---
PROCEDURE: CT ABDOMEN AND PELVIS WITH CONTRAST ([id number]) INDICATIONS: right abd pain TECHNIQUE: After the administration of oral and intravenous contrast, 5 mm thick sections acquired from the diap hragms to the symphysis. 5 mm thick coronal and sagittal reformats were performed. For radiation do se reduction, the following was used: automated exposure control, adjustment of mA and/or kV accordi ng to patient size. COMPARISON: [facility], CT, CT CHEST ABD PELVIS W CON, 06/22/2016, 14:42. FINDINGS: Image quality: Excellent. ABDOMEN: Lung bases: New trace right pleural effusion. Lung bases are otherwise clear. Heart size is normal. Solid organs: Liver and spleen are normal in size and enhancement. No change in hepatic hypodensity , consistent with fatty infiltration. Gallbladder is surgically absent. Biliary system is non-dilate d. Status post Whipple procedure. No adrenal nodules. Kidneys are normal in size and enhancement, wi thout hydronephrosis. Peritoneum and bowel: Stomach, small bowel, and colon loops are normal in caliber and wall thickness . No free fluid or air. Nodes and vessels: No retroperitoneal or mesenteric adenopathy. IVC is within normal limits. 38 mm d iameter fusiform aneurysm of the infrarenal abdominal aorta is present, as before. Miscellaneous: No ventral hernias. PELVIS: Genitourinary: Bladder wall thickness is normal. Miscellaneous: No inguinal hernias or adenopathy. Bones: No suspicious bony lesions. No vertebral body compression fractures. IMPRESSION: 1. New, trace right pleural effusion. 2. Postsurgical sequelae. 3. No change in mild aneurysmal dilatation of the infrarenal abdominal aorta. Dictated by: Han Velasquez M.D. on 07/16/2016 at 19:52 Approved by: Han Velasquez M.D. on 07/16/2016 at 19:55
[2016-07-16] MEDS: MeTOProlol XL 25 mg ER24 Tablet PO SCH (20:41)
[2016-07-17] VITALS (8 sets, daily range): BP systolic 93–102; BP diastolic 50–64; PULSE 63–80; RESP 18; O2SAT 91–99
[2016-07-17] MEDS: Heparin 5,000 Unit/mL Inj SUBQ SCH ×2 (00:37→07:49)
[2016-07-17 07:18] LABS: Mean Corpuscular Hemoglobin 30.8 pg (27.0-35.0); Mean Corpuscular Volume 91.3 fL (81-100)
[2016-07-17 07:31] LABS: Magnesium 2.2 mg/dL (1.6-2.6)
[2016-07-17] MEDS: Fluticasone-Salmeterol 500-50 Inhaler INHALATION SCH (07:45)
[2016-07-17] MEDS: POTASSIUM GLUCONATE 198 MG PO SCH (07:46)
[2016-07-17] MEDS: Pancrelipase 5,000 Unit Capsule PO SCH ×2 (07:46→11:34)
[2016-07-17] MEDS: MeTOProlol XL 25 mg ER24 Tablet PO SCH (07:54)
[2016-07-17] MEDS: Insulin GLARgine 100 Unit/mL Syringe SUBQ SCH (07:57)
[2016-07-17] MEDS: Insulin LISPRO 300 Unit/3 mL Inj SUBQ SCH ×2 (07:57→11:37)
[2016-07-17] MEDS ORDERED: LISI-571 PO (11:34)
[2016-07-17] MEDS ORDERED: FURO-129 PO (11:34)
[2016-07-17] MEDS ORDERED: SPIR25TA PO (11:34)
[2016-07-17] MEDS ORDERED: METO25TA99 PO (11:34)
--- NOTE | 2016-07-17 11:43 | PCM.DIMED ---
Discharge Instructions Date of Service July 17, 2016 Dates of Hospitalization July 10, 2016 at 19:58 Discharge Diagnosis Discharge Diagnosis # Acute Hypoxic Respiratory Failure secondary to Acute on chronic Systolic Heart Failure. Improved - Echocardiogram showing ejection fraction of 25-30%, Mod dilation of LV, Mod- severe pulmonary hypertension and moderate mitral valve regurgitation - Cardiac cath on 07/13/16: " No significant coronary artery disease. Most likely non ischemic dilated cardiomyopathy" # Acute right sided abdominal pain. not present on admission. Unclear etiology. Improved. 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 present on admission. # Acute on chronic Pulmonary Hypertension. # Diabetes Type 2. Poorly controlled as outpatient. - HgA1C 10.2 # Pancreatis cancer in remission with Chronic pancreatitis # Aortic Aneurysm - There is fusiform dilatation of the infrarenal abdominal aorta which measures 3.5 x 3.9 cm in diameter and is unchanged in the study dated 12/11/13. - need yearly imaging to monitor progression # Dyslipidemia # Acute Hypokalemia, present on admission. Resolved Diet Discharge Diet: Low fat, Low Sodium, Heart Healthy, Diabetic Activity Discharge Activity: No restrictions Call your provider Call your provider for: Fever or Chills, Shortness of breath, Bleeding, Chest pain, Excessive diarrhea Patient Instructions Patient Instructions Seek immediate medical attention if any new or worsening signs or symptoms occur. Follow-up plan 1. Followup with primary care provider within one week 2. Followup with Dr. Kitchen at [facility] Cardiology in [place] on 08/22/16 at 10: [address] [id number] Follow-up Provider: Eduard Marshall DO Follow-up with PCP in: 1 week Provider: Grisel Kitchen MD Follow-up in: Other ( 08/22/16 at 10:45 AM) Howard Martinez July 17, 2016 11:43
--- NOTE | 2016-07-17 12:10 | NUR ---
Social Work: Discharge D: Pt is on day 7 of hospitalization. Pt likely to discharge today per MD. Pt was fitted for a life vest on 07/16. PT recommends HH but pt continues to decline. Pt to discharge home via spouse. SW does not anticipate any discharge needs at this time. A: Pt who is independent at baseline. Pt for whom HH has been deemed medically necessary but pt declines. P: Pt to discharge home via POV. Pt declining HH at this time. No further needs assessed TON Henson
--- NOTE | 2016-07-17 12:28 | NUR ---
Pt ambulated for 14 laps around the unit. Heart rate steady in the low 90's at the end of 14th lap. Pt denied SOB during ambulation.
--- NOTE | 2016-07-17 15:49 | NUR ---
Discharge Reviewed discharge paperwork, care notes and medications with pt- disclaimer signed. IV DCd intact, tele removed, all belongings with pt, wallet picked up from safe downstairs. Pt denies pain & SOB at the time, strong and steady on feet. Last BP was low 95/50, asymptomatic and typically runs low, pt says he feels fine and wants to go home. Paged to confirm discharge and approved. Pt declines WC escort outside and prefers to walk out on foot. Going home with .
--- NOTE | 2016-07-17 19:14 | PCM.DC.MED ---
Discharge Summary Date of Service July 17, 2016 Dates of Hospitalization Date of Hospital Admission July 10, 2016 at 19:58 Date of Discharge: July 17, 2016 Providers: Admitting Physician: Matias Santa MD Primary Care Physician: Eduard Marshall DO Attending Physician: Matias Santa MD Diagnosis at Time of Discharge Diagnosis at Time of Discharge # Acute Hypoxic Respiratory Failure secondary to Acute on chronic Systolic Heart Failure. Improved - Echocardiogram showing ejection fraction of 25-30%, Mod dilation of LV, Mod- severe pulmonary hypertension and moderate mitral valve regurgitation - Cardiac cath on 07/13/16: " No significant coronary artery disease. Most likely non ischemic dilated cardiomyopathy" # Acute right sided abdominal pain. not present on admission. Unclear etiology. Improved. 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 present on admission. # Acute on chronic Pulmonary Hypertension. # Diabetes Type 2. Poorly controlled as outpatient. - HgA1C 10.2 # Pancreatis cancer in remission with Chronic pancreatitis # Aortic Aneurysm - There is fusiform dilatation of the infrarenal abdominal aorta which measures 3.5 x 3.9 cm in diameter and is unchanged in the study dated 12/11/13. - need yearly imaging to monitor progression # Dyslipidemia # Acute Hypokalemia, present on admission. Resolved Consultations 1. Cardiology Procedures XRay, CTs & MRIs X-RAY CHEST, TWO VIEWS 07/10 IMPRESSION: 1. Developing bibasilar airspace disease is suspicious for pneumonia. There may be trace left effusion. Dictated by: Hung Griffin M.D. on 07/10/2016 at 15:09 Approved by: Hugn Griffin M.D. on 07/10/2016 at 15:11 Cardiac Echo Impression Interpretation Summary Left ventricular systolic function is severely reduced with the ejection fraction estimated to be 25-30% with severe global hypokinesis but no focal wall motion abnormalities. The left ventricle is moderately dilated. Diastolic function could not be accurately assessed due to unobtainable data but the E/E' ratio is severely increased, suggesting possible increased filling pressures. The right ventricle is moderately dilated and right ventricular systolic function is moderately reduced. There is moderate-severe pulmonary hypertension with the right ventricular systolic pressure estimated at 64 mmHg assuming a right atrial pressure of 15 mm Hg. The left atrium is severely dilated and the right atrium is mildly dilated. There is moderate mitral regurgitation and mild to moderate tricuspid regurgitation but no other significant valvular heart disease. The ascending aorta is mildly enlarged and the abdominal aorta is mildly dilated. Reading Physician:12:41 PM Brief History 80 year old male with COPD, diabetes mellitus, and pancreatic cancer in remission s/p resection and chemotherapy, who was sent to [facility] emergency department by his regular doctor for shortness of breath. Hospital Course # Acute Hypoxic Respiratory Failure secondary to Acute on chronic Systolic Heart Failure. Improving. - Lasix 40 mg 3 times a day IV was given initially. Now patient is on PO QD - IV Morphine as needed for dyspnea - Echocardiogram already performed: Showed 25-30% EF, Mod dilation of LV, Mod- severe pulm HTN, mod MR - Appreciate Cardiology consult. Will followup with recommendations - Cardiac cath on 07/13: " No significant coronary artery disease. Most likely patient has non ischemic dilated cardiomyopathy" - Initial cardiology recommendation was for life vest and consideration of ICD as outpatient. However, recommendation now is for no life vest and instead followup with cardiology in about 4 weeks. - Continue with optimized cardiac medications per cardiology recommendations. - Followup repeat CXR showing improved CHF # Acute right sided abdominal pain. not present on admission. Resolved - CT abdomen without acute finding. 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 present on admission. ongoing - Plan as noted above. # Acute on chronic Pulmonary Hypertension. New diagnosis - Follow cardiology as noted above # Diabetes Type 2. Poorly controlled as outpatient. - Continue with home meds and close followup with PCP for further adjustment of meds. Patient says has appointment with take down sorter later this week. - HgA1C 10.2 # Pancreatis cancer in remission with Chronic pancreatitis - continue Creon with meals - continue outpatient surveillance with the Oncology clinic # Aortic Aneurysm - There is fusiform dilatation of the infrarenal abdominal aorta which measures 3.5 x 3.9 cm in diameter and is unchanged in the study dated 12/11/13. - needs yearly imaging to monitor progression - no indications for Aortic surgery at this time # Dyslipidemia - continue Pravastatin 20 mg daily # Acute Hypokalemia, present on admission. Resolved - Continue to monitor # SVT on monitor otherwise asymptomatic. Ongoing - Cardiology consult and plan as noted above Exam Vital Signs (Last) Date Time Temp Pulse Resp B/P Pulse Ox O2 Delivery O2 Flow Rate FiO2 07/17/16 14:59 71 95/50 07/17/16 13:50 36.7 18 93 Room Air 07/15/16 19:28 1.00 Exam General: Alert, Cooperative, No Acute Distress Head: Normal Eyes: Scleral Anicteric Mouth: Mucous Membr Moist/[place] Neck: Supple Chest & Lungs: Chest Wall Normal, Clear to auscultation bilat Cardiovascular: Regular Rate/Rhythm Abdomen: Non-tender. Non-distended, Normoactive bowel tones, Soft Extremities: No cyanosis/clubbing/edema bilat Neurological: Grossly Neurologically Intact, Normal Speech Test 07/10/16 17:20 07/11/16 08:57 07/13/16 05:52 07/17/16 06:45 Neutrophils (%) (Auto) 71.9% (40-74) Lymphocytes (%) (Auto) 15.8% (14-46) Monocytes (%) (Auto) 11.3% (4-12) Eosinophils (%) (Auto) 0.5% (0-5) Basophils (%) (Auto) 0.3% (0-3) Hemoglobin A1c 9.7% (4.8-5.6) Total Bilirubin 0.7mg/dL (0.0-1.2) Aspartate Amino Transf (AST/SGOT) 41U/L (0-50) Alanine Aminotransferase (ALT/SGPT) 44U/L (0-44) Alkaline Phosphatase 74U/L (25-160) Troponin T < 0.010ug/L (0.0-0.011) Pro-B-Type Natriuretic Peptide 4472pg/mL (0-486) Total Protein 7.0g/dL (6.4-8.4) Albumin 3.6g/dL (3.4-5.0) Procalcitonin 0.05ng/mL (0.00-0.08) Hold Lang Top Tube Received (Received) Urine Color Straw (YELLOW) Urine Appearance Hazy (CLEAR,HAZY) Urine pH 6.0 (5.0-8.0) Urine Specific [place] 1.010 (1.003-1.035) Urine Protein Negativemg/dL (NEG,TRACE) Urine Glucose (UA) Negativemg/dL (NEGATIVE) Urine Ketones Negativemg/dL (NEGATIVE) Urine Occult Blood Negative (NEGATIVE) Urine Nitrite Negative (NEGATIVE) Urine Bilirubin Negative (NEGATIVE) Urine Urobilinogen Normalmg/dL (NORMAL) Urine Leukocyte Esterase Negative (NEGATIVE) Urine RBC 0-2/hpf (0-2) Urine WBC 0-5/hpf (0-5) Urine Epithelial Cells Occasional/hpf (NONE-MOD) Urine Crystals None seen (NONE SEEN) Urine Bacteria None/hpf (NONE-FEW) Urine Hyaline Casts None/lpf (NONE) Urine Granular Casts None seen (NONE SEEN) Urine Waxy Casts None seen (NONE SEEN) Urine Red Blood Cell Casts None seen (NONE SEEN) Urine White Blood Cell Casts None seen (NONE SEEN) Urine Mucus None seen (None Seen) Urine Trichomonas None seen (NONE SEEN) Urine Yeast None (NONE SEEN) Urinalysis Comment None Urine Culture Reflexed Not indicated Prothrombin Time 11.3sec (8.1-12.5) Prothromb Time International Ratio 1.05ratio Triglycerides Level 94mg/dL (0-149) Cholesterol Level 120mg/dL (100-199) LDL Cholesterol, Calculated 46.200mg/dL (0-99) VLDL Cholesterol 18.800mg/dL HDL Cholesterol 55mg/dL (>39) Cholesterol/HDL Ratio 2.18 (0.0-4.4) Thyroid Stimulating Hormone (TSH) 1.380uIU/mL (0.450-4.500) White Blood Count 6.2th/mm3 (3.8-10.1) Red Blood Count 4.61mil/mm3 (4.40-5.80) Hemoglobin 14.2g/dL (13.8-17.2) Hematocrit 42.1% (41.0-50.0) Mean Corpuscular Volume 91.3fL (81-100) Mean Corpuscular Hemoglobin 30.8pg (27.0-35.0) Mean Corpuscular Hemoglobin Concent 33.7% (32.0-37.0) Red Cell Distribution Width 13.6% (12.3-15.4) Platelet Count 150bil/L (150-400) Sodium Level 138mEq/L (134-144) Potassium Level 4.0mEq/L (3.5-5.2) Chloride Level 98mEq/L (97-108) Carbon Dioxide Level 29mmol/L (18-29) Blood Urea Nitrogen 19mg/dL (8-27) Creatinine 0.78mg/dL (0.76-1.27) Estimat Glomerular Filtration Rate 102mL/min (>59) Glucose Level 169mg/dL (60-99) Calcium Level 8.7mg/dL (8.5-10.1) Magnesium Level 2.2mg/dL (1.6-2.6) Discharge Medications Discharge Medications Aspirin (Aspirin) 81 Mg Tablet 81 MG PO QAM (Reported) Budesonide/Formoterol 160-4.5 mcg Inh (Symbicort 160-4.5 mcg Inh) 120 Puff Inhaler 1 PUFF INHALATION QID (Reported) Calcium Citrate (Calcium Citrate) 250 Mg Tablet 500 MG PO QAM (Reported) Cholecalciferol (Vitamin D3) (Vitamin D3) 2,000 Unit Capsule 2,000 UNIT PO QAM ( Reported) Chromium Picolinate (Chromium Picolinate) 400 Mcg Tablet 400 MCG PO QAM ( Reported) Fish Oil/Dha/Epa (Fish Oil 1,200 mg Fish Oil) 1 Each Capsule 1 EACH PO QAM ( Reported) Furosemide (Lasix) 20 Mg Tablet 20 MG PO DAILY Prescribed by: RAMAN SILVA MD Insulin Aspart (NovoLOG U100 Insulin Vial) 100 U/Ml U 8-12 UNIT SUBQ TIDWM ( Reported) PER SLIDING SCALE Insulin Detemir (Levemir Flextouch) 100 Unit/1 Ml Insuln.pen 10 UNIT SQ BID ( Reported) HOLD FOR BG < 150 MG/DL Ipratropium [place] (Ipratropium [place] 0.03% Nasal) 30 Ml [place] 2 SPRAY NS TID (Reported) Ipratropium/Albuterol Sulfate (Iprat-Albut 0.5-3(2.5) mg/3 mL Inhalant Soln) 3 Ml Ampul.neb 3 ML IH QID (Reported) Lipase/Protease/Amylase (Shayan AVALOS) 24,000 Unit Capsule 2 CAPSULE PO TIDWM ( Reported) Lisinopril (Lisinopril) 5 Mg Tablet 2.5 MG PO DAILY Prescribed by: RAMAN SILVA MD Magnesium Oxide (Mag-Oxide) 400 Mg Tablet 400 MG PO DAILY Prescribed by: RASHAAD MORGNA DO Metoprolol Succinate ER (Metoprolol Succinate ER) 25 Mg Tab.er.24h 25 MG PO BID Prescribed by: RAMAN SILVA MD Montelukast (Montelukast) 10 Mg Tablet 10 MG PO HS Prescribed by: RASHAAD MORGAN DO Mv, Min #36/Iron,Carbonyl/FA (Geritol Complete Tablet) 1 Each Tablet 1 EACH PO QAM (Reported) Potassium Gluconate (Potassium) 99 Mg Tablet 198 MG PO DAILYWM (Reported) Pravastatin (Pravastatin) 40 Mg Tablet 20 MG PO HS (Reported) Spironolactone (Aldactone) 25 Mg Tablet 12.5 MG PO DAILY Prescribed by: RAMAN SILVA MD Tamsulosin ER (Tamsulosin ER) 0.4 Mg Cap.er.24h 0.4 MG PO BID (Reported) As needed Albuterol Sulfate (Ventolin HFA Inhaler) 200 Puff/18 Gm Inhaler 1 PUFF INH Q4H PRN PRN For Shortness of Breath (Reported) Nitroglycerin SL (Nitrostat) 0.4 Mg Tab.subl 0.4 MG SL Q5MIN PRN PRN For Chest Pain Prescribed by: RASHAAD MORGAN DO Durable Medical Equipment ([relion thin]) PENINJ SQ (Reported) (DME) 26 gauge ([autoshield pen]) DIRECTED (Reported) (DME) 30 guage needle used to inject insulin as directed ([disability parking]) (Reported) (DME) [place], Insulin Disposable (Unifine Pentips Plus) 1 Each Dis.needle 1 EACH MC DIRECTED (Reported) (DME) Followup Plan Disposition: Home Follow-up plan 1. Followup with primary care provider within one week 2. Followup with Dr. Kitchen at [facility] Cardiology in [place] on 08/22/16 at 10: [address] [address] Discharge Diet: Low fat, Low Sodium, Heart Healthy, Diabetic Discharge Activity: No restrictions Patient Instructions Seek immediate medical attention if any new or worsening signs or symptoms occur. Follow-up Provider: Eduard Marshall DO Follow-up with PCP in: 1 week Provider: Grisel Kitchen MD Follow-up in: Other ( 08/22/16 at 10:45 AM) Time spent 40 min copies to: Grisel Kitchen MD; Eduard Marshall Masoud July 17, 2016 19:14
== END 2016-07-17 15:56 | disposition home or self-care (01) | DRG 286 ==
LOC: SED 15:22 → MPC 19:48 → SED 19:48 → MPC 19:58
PROVIDERS: ADMIT Hospitalist; ATTEND Hospitalist
PROC: 4A023N7 Measurement of Cardiac Sampling and Pressure, Left Heart, Percutaneous Approach (ICD-10-PCS; principal; 2016-07-13)
PROC: B2111ZZ Fluoroscopy of Multiple Coronary Arteries using Low Osmolar Contrast (ICD-10-PCS; 2016-07-13)
DX: I50.23 Acute on chronic systolic (congestive) heart failure (principal); J96.01 Acute respiratory failure with hypoxia; J44.1 Chronic obstructive pulmonary disease with (acute) exacerbation; K86.1 Other chronic pancreatitis; I47.1 Supraventricular tachycardia; I42.0 Dilated cardiomyopathy; E11.9 Type 2 diabetes mellitus without complications; E78.5 Hyperlipidemia, unspecified; Z79.4 Long term (current) use of insulin; Z85.07 Personal history of malignant neoplasm of pancreas; Z87.891 Personal history of nicotine dependence; Z92.21 Personal history of antineoplastic chemotherapy; E87.6 Hypokalemia; Z86.718 Personal history of other venous thrombosis and embolism; I27.2 Other secondary pulmonary hypertension; R10.9 Unspecified abdominal pain